=== PATIENT | male | born 1935 | race Caucasian/White ===

== ENCOUNTER → 2024-03-18 11:18 | Outpatient (REF) | payer MEDICARE, OTHER, SELFPAY ==
[2024-03-18 16:04] LABS: % Basophils 0.9 % (0-2); % Eosinophils 8.3 % (0-6); % Immature Granulocytes 0.4 % (0-0.5); % Lymphocytes 20.4 % (20.5-51.1); % Monocytes 8.4 % (1.7-9.3); % Neutrophils 61.6 % (42.2-75.2); Absolute Basophils 0.1 10^3/uL (0-0.2); Absolute Eosinophils 0.8 10^3/uL (0-0.7); Absolute Lymphocytes 1.9 10^3/uL (1.2-3.4); Absolute Monocytes 0.8 10^3/uL (0.1-0.6); Absolute Neutrophils 5.7 10^3/uL (1.4-6.5); Hematocrit 38.6 % (39.0-52.0); Hemoglobin 12.9 g/dL (13.0-18.0); Mean Corp Hgb Conc. 33.4 g/dL (33.0-37.0); Mean Corpuscular Hgb 31.9 pg (27.0-31.0); Mean Corpuscular Volume 95.3 fL (80.0-94.0); Mean Platelet Volume 10.6 fL (7.4-10.4); Nucleated Red Blood Cells % 0 % (-); Platelet Count 197 10^3/uL (130-400); Red Blood Cell Count 4.05 10^6/uL (4.70-6.10); Red Cell Dist. Width 13.1 % (11.5-14.5); White Blood Cell Count 9.3 10^3/uL (4.8-10.8)
[2024-03-18 16:13] LABS: ALT (SGPT) 19 U/L (0-50); AST (SGOT) 20 U/L (17-59); Albumin 4.1 g/dl (3.5-5.0); Alkaline Phosphatase 88 U/L (38-126); Blood Urea Nitrogen 22 mg/dl (9-20); Calcium 9.1 mg/dl (8.4-10.2); Carbon Dioxide 28 mmol/L (22-30); Chloride 107 mmol/L (98-107); Glucose 152 mg/dl (70-99); HDL Cholesterol 37 mg/dl; LDL Cholesterol, Calculated 27 mg/dl; Potassium 4.2 mmol/L (3.5-5.1); Sodium 145 mmol/L (135-145); Total Bilirubin 1.5 mg/dl (0.2-1.3); Total Cholesterol 80 mg/dl (50-199); Total Protein 6.6 g/dl (6.3-8.2); Triglyceride 83 mg/dl (10-149); Very Low Density Lipoprotein 16 mg/dl (0-30)
[2024-03-18 16:14] LABS: Urine Albumin Negative (Neg - Trace); Urine Bilirubin Negative (Negative); Urine Character Clear (Clear); Urine Color Yellow; Urine Glucose Negative (Negative); Urine Ketone Negative (Negative); Urine Leukocyte Negative (Negative); Urine Nitrite Negative (Negative); Urine Occult Blood Negative (Negative); Urine Specific Gravity 1.015 (<1.030); Urine Urobilinogen Negative (Neg - 1+)
[2024-03-18 16:50] LABS: Microalbumin, Random Urine 0.6 mg/dl (0.6-1.7); Microalbumin/creatinine Ratio 10.8 mg/g
[2024-03-19 09:30] LABS: Glycohemoglobin (HgbA1c) 6.8 % (4.0-5.6)
== END ==
LOC: HWLAB 11:18
PROVIDERS: ATTENDING PHYSICIAN Internal Medicine
DX: E11.42 Type 2 diabetes mellitus with diabetic polyneuropathy (principal); I10 Essential (primary) hypertension; E78.2 Mixed hyperlipidemia; I69.993 Ataxia following unspecified cerebrovascular disease
CPT/HCPCS: 36415; 80053; 80061; 81003; 82043; 82570; 83036; 85025

== ENCOUNTER → 2024-03-22 12:23 | Outpatient (REF) | payer MEDICARE, OTHER, SELFPAY | LOC: WOUND 12:23 | PROVIDERS: ATTENDING PHYSICIAN Surgery; FAMILY PHYSICIAN Internal Medicine | DX: L89.309 Pressure ulcer of unspecified buttock, unspecified stage (principal) | CPT/HCPCS: 99202 ==

== ENCOUNTER 2024-05-03 11:18 | Emergency (ER) | payer MEDICARE, OTHER, SELFPAY ==
[2024-05-03 11:22] VITALS: BP 123/63
--- NOTE | 2024-05-03 12:25 | ED.GENMED ---
History of Present Illness
General
Chief Complaint: Fall
Source: patient
Exam Limitations: none
Time Seen by Provider: 05/03/24 11:47
Nursing documentation reviewed up to this point in time: agreed with
History of Present Illness
History of Present Illness:
88 Y/O M from home
h/o wpw, chf, htn, hld, cva 2013, uses walker at baseline
mechanical trip and fall last evening while in his baseline forward and to the left side, landed on his Right knee and hit his left head against the door jam
no LOC
needed help up by grandson
painful limited weight bearing right knee naun
nothing taken for pain
no headache, confusion, weakness, vomting, neck pain, back tony, sob, cp, abdominla pain, hip pain
no swelling
Past History
Past History
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
Social History
Tobacco: Former smoker
Alcohol: Occasional
Personal:
Family History
Family History: Hypertension and CAD
Phy Exam
Physical Exam
Physical Exam:
GENERAL: Alert , in no apparent distress
HEAD: bruise L head
NECK: no midline tenderness, active ROM intact, no paraspinal muscle tenderness;
EYE: pupils equal and reactive, EOMs intact.
ENT: o/p clr, mmm. no hemotympanum
CARDIAC: Regular rate and rhythm, no edema
LUNGS: Clear breath sounds bilaterally, no acute respiratory distress, no wheezes/rales/rhonchi
ABDOMEN: Soft, without focal tenderness, no r/g, no cvat
NEUROLOGICAL: Alert and oriented, no focal neuro deficits, CN intact, 5/5 strength, sensation intact
SKIN: Warm and dry,
subtle brusing to left head
MUSCULOSKELETAL: righ tknee no appreaicated effusion
painful limited flexion
able to straight leg raise
nontender
no calf/ankle/foot tendneress; normal hip rom b/l
nontender hips
PSYCH: Normal and appropriate interaction.
Course
Orders/Labs/Results
Orders:
Orders
05/03/24 12:22
CT Head W/o Iv Contrast Urgent
Comment:
Reason For Exam: fall hit head
Acetaminophen [Tylenol] 1,000 mg PO NOW STA
CR Knee- Right 4 Or More View* Urgent
Comment:
Reason For Exam: fall knee pain
Vital Signs
Initial and Last Documented VS:
Initial Vital Signs
Temp Pulse Resp BP Pulse Ox
98.4 F 72 16 123/63 96
05/03/24 11:22 05/03/24 11:22 05/03/24 11:22 05/03/24 11:22 05/03/24 11:22
Last Documented Vital Signs
Temp Pulse Resp BP Pulse Ox
98.4 F 65 22 123/63 96
05/03/24 11:22 05/03/24 12:30 05/03/24 12:30 05/03/24 11:22 05/03/24 11:22
MDM/Problems Addressed
Differential Diagnosis Includes:
kneefracture, contuion, strain, sprain, head injury
MDM/Problems Addressed:
88 yo M
uses a walker and fell yesterday
onto knee and hit left head
no loc, no t hinners
able to walk minimally with pain
hasn't taken anything for pain
on exam pt has some pain with ROM of knee
normal straight leg raise
no hip tendenress
xrays indep reviweed
arthritis, small effuiosn, no fracture
head ct neg, other than chronic encephalomalacia
pt was ablle to ambulate after tylenol and ryland wrap with walker at his [facility]
d/c home
*Critical Care Note
Total Time (30-74mins, 75-104mins- exclusive of procedures): Not Applicable
ED Attending Note
-
Portions of this chart may have been created with voice recognition software.� Occasional wrong word or��sound alike� substitutions may have occurred due to the inherent limitations of voice recognition software.
Discharge Plan
Departure
Patient Disposition: Home (Routine Discharge)
Date of Disposition: 05/03/24
Time of Disposition: 15:22
Patient with high blood pressure during this ER visit?: No
Condition: Fair
Covid-19: Not Applicable
Discharge Problem:
Contusion of knee, Fall
Instructions: Head Injury in Adults (DC), Contusion (DC)
Prescriptions:
No Action
Ascorbic Acid
500 mg PO DAILY
atorvastatin 40 MG tablet
40 mg PO HS
aspirin 325 MG tablet
325 mg PO HS
spironolactone [Aldactone] 25 MG tablet
25 mg PO DAILY
gabapentin 300 MG capsule
300 mg PO TID Qty: 30 0RF
furosemide 80 MG tablet
80 mg PO DAILY Qty: 10 0RF
losartan 50 MG tablet
50 mg PO DAILY
carvedilol [Coreg] 6.25 MG tablet
6.25 mg PO BID
cyclobenzaprine 10 MG tablet
10 mg PO TID PRN (Reason: back pain)
ibuprofen 400 MG tablet
400 mg PO PRN PRN (Reason: back pain)
oxycodone-acetaminophen 5 MG/325 MG tablet
1 tab PO Q4HPRN PRN (Reason: pain) Qty: 15 0RF
prednisone 10 MG tablet
10 mg PO .TAPER Qty: 20 0RF
Rx Instructions:
Take 40mg daily x2days, 30mg daily x2days,
20mg daily x2days, 10mg daily x2days.
meclizine 25 MG tablet
25 mg PO Q8HPRN PRN (Reason: dizziness) Qty: 10 0RF
oxycodone-acetaminophen [Percocet] 5-325 mg tablet
1 tab PO Q4HPRN PRN (Reason: pain) Qty: 10 0RF
Rx Instructions:
Initial therapy
Referrals:
Salbador Mccrary, DO [Family Provider] -
Activity Restrictions/Additional Instructions:
YOU HAVE A LITTLE FLUID IN YOUR KNEE FROM THE FALL
NO FRACTURES
YOU MAY HAVE BRUISED OR SPRAINED YOUR KNEE OR INJURED A TENDON
TRY TYLENOL 2-3 TIMES A DAY FOR PAIN
ICE OFF AND ON
USE THE [place] WRAP DURING THE DAY, TAKE IT OFF ATNIGHT
FOLLOW UP WITH ORTHOPEDICS FOR CONTIJUED PAIN
RETURN FOR : SEVERE SWELLING, INABILITY TO WALKOR ANY CONCERNS
Interventions
Interventions:
*Risk Screen - Suicide Last Done: 05/03/24 11:25
*General Assessment Last Done: 05/03/24 11:25
*Neglect/Abuse Screening Last Done: 05/03/24 11:25
ED- Fall Risk Assessment Last Done: 05/03/24 13:00
*ED COVID-19 Vaccine History Last Done: 05/03/24 12:59
*Nursing Disposition Last Done: 05/03/24 16:18
ED-Musculoskeletal Assessment Last Done: 05/03/24 13:00
ED- Neurological Assessment Last Done: 05/03/24 13:00
ED-Skin Assessment Last Done: 05/03/24 13:00
Discharge Date and Time
Discharge Date/Time: 05/03/24 16:18
Print Language: TRINIDADIAN
[2024-05-03] MEDS: TYLENOL 1000 MG PO (12:52)
[2024-05-03 12:56] VITALS: BMI 31.0
== END 2024-05-03 16:18 | disposition home or self-care (01) ==
LOC: EMR 11:18
PROVIDERS: EMERGENCY PHYSICIAN Emergency Medicine; FAMILY PHYSICIAN Internal Medicine
DX: S80.01XA Contusion of right knee, initial encounter (principal); W01.198A Fall on same level from slipping, tripping and stumbling with subsequent striking against other object, initial encounter; Y92.008 Other place in unspecified non-institutional (private) residence as the place of occurrence of the external cause; I45.6 Pre-excitation syndrome; I11.0 Hypertensive heart disease with heart failure; I50.9 Heart failure, unspecified; E78.5 Hyperlipidemia, unspecified; G93.89 Other specified disorders of brain; I69.312 Visuospatial deficit and spatial neglect following cerebral infarction; I69.398 Other sequelae of cerebral infarction; I25.10 Atherosclerotic heart disease of native coronary artery without angina pectoris; Z87.891 Personal history of nicotine dependence; Z79.82 Long term (current) use of aspirin
CPT/HCPCS: 99284; 70450; 73564

== ENCOUNTER 2024-05-15 13:17 | Inpatient (IN) | payer MEDICARE, OTHER, SELFPAY ==
[2024-05-15] VITALS (14 sets, daily range): BP systolic 119–165; BP diastolic 60–111
--- NOTE | 2024-05-15 09:56 | ED.GENMED ---
History of Present Illness
General
Chief Complaint: Fall
Source: patient
Time Seen by Provider: 05/15/24 09:35
History of Present Illness
History of Present Illness:
88-year-old male brought to the emergency room by ambulance after suffering a fall at home. Patient states he lost his balance and fell onto his knees. Patient had previously fallen onto his right knee about 2 weeks ago. He was having pain since
that fall. The pain is now much worse. He has discomfort with minimal movement of the right knee. Patient denies feeling any chest pain, shortness of breath, nausea. Paramedics describe an episode in the hands which they described as a seizure.
They were not able to describe it in any detail. He did not have any incontinence. Patient does not appear postictal upon arrival. Patient denies any seizure history.
Past History
Past History
ED Past Medical History: CAD, CHF, CVA (2014 w/ left visual field loss and balance problems) and HTN
Social History
Tobacco: Former smoker
Alcohol: Occasional
Personal:
Family History
Family History: Hypertension and CAD
Phy Exam
Physical Exam
Physical Exam:
General: Awake, Alert, Oriented X3. No acute distress.
Vitals: unremarkable
Head: Atraumatic
Eyes: Pupils equal, EOMI
Throat: Airway intact, no exudates
Neck: Trachea midline
Lungs: Clear and equal b/l
Heart: Regular rate, no murmurs
Abd: Soft, Nontender, No pulsatile mass
Neuro: Cranial nerves intact, muscle strength equal bilaterally
Skin: Warm, dry, no rash
Extremities: pulses equal b/l, no edema
Course
Orders/Labs/Results
Orders:
Orders
05/15/24 09:51
CT Head W/o Iv Contrast Urgent
Comment:
Reason For Exam: possible seizure
Knee, Right 4 or More Views [CR Knee- Right 4 Or More View*] Urgent
Comment:
Reason For Exam: pain after a fall
05/15/24 09:53
Basic Metabolic Panel Urgent
Complete Blood Count/With Diff Urgent
05/15/24 10:56
Urinalysis Reflex To Culture Urgent
Date Specimen was Collected: 05/15/24
Time Specimen was Collected: 10:53
05/15/24 10:59
CR Chest - 2 Views Urgent
Comment:
Reason For Exam: hypoxia
05/15/24 11:39
CT Chest Pe Study Urgent
Comment:
Reason For Exam: hypoxia
05/15/24 12:28
Ketorolac [Toradol] 15 mg IV NOW STA
Ketorolac [Toradol] 15 mg IV Q6HPRN PRN
05/15/24 12:33
CARDIOLOGY CONSULT Routine
Consulting Provider: Rafy Miller
Was physician already notified: Yes
Reason for consult: acute bradycardia , falls
Acetaminophen [Tylenol] 650 mg PO Q6HPRN PRN
05/15/24 12:34
Splint [Braces/Immobilizers] As Directed
Type of Brace/Immobilizer: Other
Other brace/immobilizer: luh wrap
Location for Brace/Immobilizer: right knee
05/15/24 12:35
Add On- LAB Urgent
Tests Added?: troponin, mag, tsh with free t4
05/15/24 12:37
Admit/Transfer Patient As Directed
Co-Sign Provider:
Level of Care: Inpatient admission
Assign to:: Telemetry
Physician / Group: karen adames
Diagnosis: acute bradycardia concern symptomatic with fall R knee pain/strain
Reason for Telemetry: Arrhythmia
Date to Stop Telemetry: 05/18/24
Time to Stop Telemetry: 11:00
Reason for Hospitalization: acute bradycardia concern symptomatic with fall R knee pain/strain
Expected length of stay greater than two midnights?: Yes
ELOS- Estimated Length of Stay in days: 4
I certify the patient meets the requirements for IP care: Yes
Code Status As Directed
Resuscitation Status: Full Code
05/15/24 12:43
PRN Pain Medication Management As Directed
May give lesser potent ordered pain med per pt: Yes
preference::
Protocol:: Medication orders for pain may be administered in a
manner that supports deferring to patient preference
when the pt is:
- Requesting an ordered lesser potent pain medication.
Least to most potent pain medications are defined
as: acetaminophen < NSAID < tramadol < opioids
(morphine, oxycodone, hydromorphone).
- Requesting a lesser dose of the same medication IF
ORDERED.
- Requesting a less intrusive route of administration
if both routes are prescribed by the provider (PO <
IV).
05/15/24 12:45
0.9% Sodium Chloride 1000 ml [Nss] 1,000 ml IV 100 mls/hr
05/15/24 12:48
ECG [Electrocardiogram (*1)] Urgent
Reason for Study: Bradycardia / Tachycardia
Cardiology Consult: Fan Miller
05/15/24 13:00
0.9% Sodium Chloride 1000 ml [Nss] 1,000 ml IV 75 mls/hr
05/18/24 11:00
DC Protocol for Telemetry ONCE
Abnormal Lab Results
05/15/24
09:53
WBC 12.3 H 10^3/uL
(4.8-10.8)
RBC 4.67 L 10^6/uL
(4.70-6.10)
MCH 31.5 H pg
(27.0-31.0)
Abs Immat Gran (auto) 0.2 H 10^3/uL
(0-0.05)
Absolute Neuts (auto) 9.8 H 10^3/uL
(1.4-6.5)
Immature Gran % 1.7 H %
(0-0.5)
Neutrophils % 79.6 H %
(42.2-75.2)
Lymphocytes % 13.9 L %
(20.5-51.1)
BUN 37 H mg/dl
(9-20)
Creatinine 1.4 H mg/dL
(0.7-1.3)
Glucose 182 H mg/dl
(70-99)
05/15/24 09:53
05/15/24 09:53
Vital Signs
Initial and Last Documented VS:
Initial Vital Signs
Pulse Resp Pulse Ox
84 22 89
05/15/24 09:37 05/15/24 09:37 05/15/24 09:37
Last Documented Vital Signs
Temp Pulse Resp BP Pulse Ox
97.8 F 97 26 165/89 90
05/15/24 09:42 05/15/24 12:15 05/15/24 12:15 05/15/24 12:13 05/15/24 12:15
MDM/Problems Addressed
Differential Diagnosis Includes:
Right tibia fracture, right patella fracture, vasovagal syncope, symptomatic bradycardia, electrode abnormality
MDM/Problems Addressed:
Patient presents initially to be evaluated for right knee injury after a fall. During ambulance transport they describe activity which they thought was seizure-like. This lasted for a minute or so. He was not postictal on arrival. While patient
was being monitored here in the emergency room he had an episode of bradycardia down to the 20s. He did not lose consciousness however this episode does raise concern that the falls and what ever this episode was in the ambulance could be related
to syncope for bradycardia. Patient has been hypoxic here in the emergency room. He is not anemic. Chest x-ray does not show any significant infiltrate. We will obtain a CT of the chest to exclude PE however the patient will require
hospitalization for further workup and monitoring of these issues.
*Radiology
Radiology exam reviewed: radiology read reviewed
*Pulse Oximetry
Patient hypoxic: yes
*EKG
Heart Rate: 102
Rate: tachycardiac
Rhythm: sinus tachycardia
QRS Pattern: left bundle branch block
Ischemia: non-specific ST changes
*General Supervisor Interpretation
Rate: normal
Interpretation: normal
Rhythm: sinus
*Critical Care Note
Total Time (30-74mins, 75-104mins- exclusive of procedures): Not Applicable
ED Attending Note
-
Portions of this chart may have been created with voice recognition software.� Occasional wrong word or��sound alike� substitutions may have occurred due to the inherent limitations of voice recognition software.
Discharge Plan
Departure
Patient Disposition: Admit
Date of Disposition: 05/15/24
Time of Disposition: 11:39
Presentation/result/management discussed w/ accepting MD/DO: Hospitalist
Condition: Fair
Discharge Problem:
Hypoxia, Falls frequently, Contusion of knee, right, Bradycardia
Prescriptions:
No Action
atorvastatin 40 MG tablet
40 mg PO HS
aspirin 325 MG tablet
325 mg PO HS
ascorbic acid (vitamin C) [Vitamin C] 500 mg Tablet
500 mg PO DAILY
carvedilol [Coreg] 6.25 MG tablet
12.5 mg PO BID
meclizine 25 MG tablet
25 mg PO Q8HPRN PRN (Reason: dizziness) Qty: 10 0RF
metformin 500 mg Tablet
500 mg PO BID
amlodipine [Norvasc] 5 mg Tablet
5 mg PO DAILY
allopurinol 100 mg Tablet
100 mg PO DAILY
tamsulosin [Flomax] 0.4 mg Capsule
0.4 mg PO DAILY
docusate sodium [Colace] 100 mg Capsule
100 mg PO NOON
mirtazapine 15 mg Tablet
15 mg PO HS
furosemide 80 MG tablet
60 mg PO DAILY
Referrals:
Salbador Mccrary DO [Family Provider] -
Interventions
Interventions:
*Risk Screen - Suicide Last Done: 05/15/24 09:37
*General Assessment Last Done: 05/15/24 09:37
*Neglect/Abuse Screening Last Done: 05/15/24 09:37
ED- Fall Risk Assessment Last Done: 05/15/24 09:37
*ED COVID-19 Vaccine History Last Done: 05/15/24 09:46
ED-Musculoskeletal Assessment Last Done: 05/15/24 09:37
ED- Neurological Assessment Last Done: 05/15/24 09:37
ED-Skin Assessment Last Done: 05/15/24 09:37
Discharge Date and Time
Print Language: CZECH
[2024-05-15 10:04] LABS: % Basophils 0.4 % (0-2); % Eosinophils 1.6 % (0-6); % Immature Granulocytes 1.7 % (0-0.5); % Lymphocytes 13.9 % (20.5-51.1); % Monocytes 2.8 % (1.7-9.3); % Neutrophils 79.6 % (42.2-75.2); Absolute Basophils 0.1 10^3/uL (0-0.2); Absolute Eosinophils 0.2 10^3/uL (0-0.7); Absolute Immature Granulocytes 0.2 10^3/uL (0-0.05); Absolute Lymphocytes 1.7 10^3/uL (1.2-3.4); Absolute Monocytes 0.3 10^3/uL (0.1-0.6); Absolute Neutrophils 9.8 10^3/uL (1.4-6.5); Hematocrit 41.9 % (39.0-52.0); Hemoglobin 14.7 g/dL (13.0-18.0); Mean Corp Hgb Conc. 35.1 g/dL (33.0-37.0); Mean Corpuscular Hgb 31.5 pg (27.0-31.0); Mean Corpuscular Volume 89.7 fL (80.0-94.0); Mean Platelet Volume 10.1 fL (7.4-10.4); Nucleated Red Blood Cells % 0 % (-); Platelet Count 195 10^3/uL (130-400); Red Blood Cell Count 4.67 10^6/uL (4.70-6.10); Red Cell Dist. Width 13.2 % (11.5-14.5); White Blood Cell Count 12.3 10^3/uL (4.8-10.8)
[2024-05-15 10:22] LABS: Blood Urea Nitrogen 37 mg/dl (9-20); Carbon Dioxide 27 mmol/L (22-30); Chloride 104 mmol/L (98-107); Estimated Creatinine Clearance 45 ml/min; Glucose 182 mg/dl (70-99); Sodium 139 mmol/L (135-145); eGFR 48.34
--- NOTE | 2024-05-15 10:53 | EDRN ---
@ 1045 pt alarm rand for low HR. pt found to be bradycardic @ 44 bpm. this RN and second Rn ran onto bedside. pt then HR dropped to 29 bpm. pt remained awake during this and pulses intact. pt regained HR of 70-80 bpm shortly after. EKG brought to
room but pts HR no longer bradycardic. MD Vega made aware of this episode and rhythm strips printed and given to .
--- NOTE | 2024-05-15 11:01 | EDRN ---
pt remains hypoxic. was weaned to 2L NC however now back to 6L NC. MD Vega aware.
[2024-05-15 12:23] LABS: Urine Albumin Trace (Neg - Trace); Urine Bilirubin Negative (Negative); Urine Character Clear (Clear); Urine Color Yellow; Urine Glucose Negative (Negative); Urine Ketone Negative (Negative); Urine Leukocyte Negative (Negative); Urine Nitrite Negative (Negative); Urine Occult Blood Negative (Negative); Urine Specific Gravity 1.015 (<1.030); Urine Urobilinogen Negative (Neg - 1+)
[2024-05-15] MEDS: TORADOL 15 MG IV (12:40)
--- NOTE | 2024-05-15 13:09 | HPS.HSE ---
Addendum entered and electronically signed by Alex Neumann MD 05/15/24 13:46:
Received a call from the nurse that the patient's family now sounds like with an juvencio crackle we will order when examined by cardiology did not receive any fluid.
Went over the evaluated the patient, still awake, alert and family still the bedside still complaining of the pain in the right knee, on lung examination of bibasilar crackles and scattered wheezing which was not present before.
He is not in distress, still same as was before.
Therefore we will hold IV fluid is not started, I will give him a dose of IV Lasix and start DuoNeb 4 times daily and first dose now
Will DC the IV fluids as mentioned
Restart his oral Lasix tomorrow unless needed more IV Lasix.
Cardiology consulted
Will closely monitor.
All discussed with the patient and the family
Discussed with the ER nurse
Original Note:
Family Physician
-
Family Physician: Salbador Mccrary
Chief Complaint
-
Mechanical fall and pain in the right knee
History of Present Illness
88-year-old male who was in the hospital 2 weeks ago after had a mechanical fall on the right knee and and look like x-ray did not show fracture and show primary care physician and given dose of the taper steroid would help him out and he was knee
free for the last couple of days and probably had another mechanical fall earlier today while he was home,
Patient awake, alert and oriented x 3 accompanied by the , daughter and son at the bedside, there was no witnessed seizure-like activity and patient denied any dizziness or syncope prior to the fall Gleich lost balance and fell on his knee
again. Complaining of excruciating pain in the right knee with swelling mostly in the knee With the x-ray showed no fracture or dislocation,
Looks like he was kind getting jittery and frustrated according to the daughter and the family when the EMS was called and they got him out of the front door and they put him on ambulance and he was noticed to be hypoxic by EMS and satting in upper
80s and continue to be on and off oxygen saturation in 80s in room air until he put on oxygen.
Denies any chest pain or shortness of breath or fever or chills or any cough or congestion, no bleeding event changes stool or urine color, also in the ER noted she was bradycardic and in the strip showed his heart rate went down as low as 27 and
quickly converted back to sinus rhythm, with no symptoms no rest needed by the patient and the family of the ER staff.
CTA chest showed no pulmonary embolism or infiltration while EKG showed chronic left bundle branch block and QTc prolongation.
He is awake, alert and oriented x 3 hold appropriate conversations.
His condition discussed with the ER physician.
Medical History
Past Medical History
Past Medical History: Reports Other
Additional Past Medical History:
Past medical history reviewed:
Diabetes mellitus
Chronic kidney disease stage II-III
Mood disorder
Hypertension
Chronic diastolic congestive heart failure
Peripheral neuropathy
History of stroke with no residual effect
Chronic left bundle branch block
Surgical history:
Cervical spine surgery
Tonsillectomy
Cataract surgery
Social history: Lives at home with independently, no smoking and drinks 1 to 2 glasses of wine daily.
Family history: Reviewed and noncontributory
Past Surgical History: Reports Other
Social History
Unable to obtain full social history at this time due to: Other
Family History
Family History: Other
Allergies / Home Medications
Allergies reflects when Allergies were last updated in [email or web address].
Home Medications with original date entered in [email or web address]
Allergy/Medication List:
Allergies
Allergy/AdvReac Type Severity Reaction Status Date / Time
No Known Allergies Allergy Verified 05/03/24 11:21
Home Medications
ascorbic acid (vitamin C) 500 mg tablet (Vitamin C) 500 mg PO DAILY 09/07/14
aspirin 325 mg tablet 325 mg PO HS 09/07/14
atorvastatin 40 mg tablet 40 mg PO HS 09/07/14
carvedilol 6.25 mg tablet (Coreg) 12.5 mg PO BID 01/20/16
meclizine 25 mg tablet 25 mg PO Q8HPRN PRN dizziness #10 tabs 07/18/18
allopurinol 100 mg tablet 100 mg PO DAILY 05/15/24
amlodipine 5 mg tablet (Norvasc) 5 mg PO DAILY 05/15/24
docusate sodium 100 mg capsule (Colace) 100 mg PO NOON 05/15/24
furosemide 80 mg tablet 60 mg PO DAILY 05/15/24
metformin 500 mg tablet 500 mg PO BID 05/15/24
mirtazapine 15 mg tablet 15 mg PO HS 05/15/24
tamsulosin 0.4 mg capsule (Flomax) 0.4 mg PO DAILY 05/15/24
Review of Systems
-
A 12 point ROS was completed and negative except as noted: Yes
Physical Exam
Vital Signs
Vital Signs
Temp Pulse Resp BP Pulse Ox
97.8 F 97 26 165/89 90
05/15/24 09:42 05/15/24 12:15 05/15/24 12:15 05/15/24 12:13 05/15/24 12:15
Physical exam:
General: Awake, alert and oriented x3, not in distress and holds appropriate conversation.
HEENT: No active discharge, ecchymosis or bruising, moist lips, tongue and mucous membrane.
Eyes: No discharge or red conjunctiva, no nystagmus, pupils are reactive and equal
Neck:Supple, no JVD no bruit no goiter.
Respiratory: Normal AP contour and diameter, normal chest wall movement, normal respiratory effort, no respiratory distress,
Lungs: Good air entry bilaterally, no wheezing or rhonchi, no rales or crackles
Heart: S1, S2 regular, normal rate, no added sound.
Gastrointestinal: Positive bowel sounds, soft, nontender, no guarding or rigidity or organomegaly
Musculoskeletal: Abrasion over the right knee mostly medially, with mild swelling of the right knee and limitation of movement. While all the other joints and extremities have normal range of motion and no evidence of swelling,, no chest wall
abnormality or tenderness.
Extremities: No pitting edema, good peripheral pulses, good range of motion
Skin: Warm and dry, no ulceration, normal color.
Neurological: Awake, alert and oriented x3, speech clear and comprehensive, good muscle tone,
Psychiatric: Normal mood, normal thought and judgment, normal affect,
Physical Exam
General: Other
Laboratory Results
-
05/15/24 09:53
05/15/24 09:53
CTA chest:No CTA evidence for an acute pulmonary thromboembolism within the limitations of respiratory motion artifact and streak artifact. Limited evaluation of the bilateral segmental and subsegmental pulmonary arteries.
Right knee x-ray:No acute fracture or dislocation.
CT brain:There are no acute intracranial abnormalities.
There is old 6 cm right posterior cerebral artery infarct
There is moderate diffuse cortical atrophy with moderate nonspecific white matter changes as described above.
EKG: Showed sinus tachycardia with 2: 156, QTc 516, left of the branch block, left axis deviation, nonspecific T wave abnormality
Data Reviewed
-
Diagnostic Radiology: Image Personally Visualized and interpreted, Report Reviewed by me, Discussed with Physician, Discussed with Patient and Discussed with Family
CT Scan: Image Personally Visualized and interpreted, Report Reviewed by me, Discussed with Physician, Discussed with Patient and Discussed with Family
Medical Tests (Nuc Med, Echo, EKG etc): Image Personally Visualized and interpreted, Discussed with Patient and Discussed with Family
Lab Data: Labs Reviewed by me, Discussed with Patient and Discussed with Family
Old Records: Reviewed
Impression/Plan
-
IMPRESSION:
88-year-old male presented to the hospital with right mechanical fall at home on his right knee down, no any dizziness is uncertain of syncope or loss of questions of seizure prior to the fall.
Mechanical fall.
PT OT and assess functional status
Fall precaution
Right knee pain:
Likely secondary to right knee pain and swelling, x-ray showed no fracture or dislocation
If not improving or there is more swelling then we will consider knee CAT scan get an Ortho consult.
Pain medication with Ultram and Tylenol avoid NSAID because of chronic kidney disease.
PT OT
Place Rodrigo bandage on.
Ambulatory dysfunction, secondary to right knee pain
PT OT and assess functional status
Acute hypoxic failure:
Unclear causes, CT was negative for PE on infiltration, no respiratory symptoms,, he had an episode of bradycardia in the ER, currently in a normal rhythm but he is still requiring oxygen,
Possibly related to holding his breath because of the pain
Continue oxygen and try to wean off
Cardiac monitoring
Get cardiology consult
Check magnesium level and potassium was was not resulted because of hemolyzed
TSH
Sinus bradycardia
No clear causes
Carvedilol was assured.
alarm security or surveillance monitor
Check TSH, potassium and magnesium level
Cardiology consult
Continue carvedilol for now since was a short left episode
Chronic QTc interval prolongation:
Known history: As above check lites and TSH
Cardiology consult.
Left bundle branch block: Chronic
Get a troponin
Cardiology consult
Diabetes mellitus: Glucoscan
He is on metformin and his creatinine ranging from 1.4-1.6 should not be back on metformin
I will hold anyway because getting IV contrast
monitor blood sugar closely
Hypertension:
Continue carvedilol and amlodipine will monitor pressure closely
Chronic congestive heart failure with preserved ejection fraction:
Stable
Looks on the dry side
Give him a bag of normal saline specially he received IV contrast
All discussed with the patient and the family and they expressed understanding
CODE STATUS full code
DVT prophylaxis
--- NOTE | 2024-05-15 13:24 | CON.CAR ---
Addendum entered and electronically signed by Rafy Miller MD 05/15/24 15:32:
I saw and examined the patient.
The Fire Chief's note was reviewed and I agree with the note.
Comment:
GEN: No distress, awake, Ox3
HEENT: supple, anicteric, mmm
LUNGS: scatt rhonchi
CV: Reg, S1/S2, 1/6 syst LSB, no gallop
ABD: soft, BS+, NT/ND
EXT: No edema
NEURO: Gross non-focal
SKIN: No rash
Plan:
He presents after multiple falls was found to have a few brief episodes of sinus bradycardia today. Is unclear whether his falls are related to his bradycardia. He currently is in sinus rhythm in the 90s. Will decrease Coreg to 6.25 mg p.o. twice
daily and follow him on telemetry. We discussed pacemaker placement I see no clear indication for pacemaker right now. Will follow him for the next 12 to 24 hours and reassess. Another option if he does not meet criteria for permanent pacing with
the to place a Linq monitor.
Await COVID test. proBNP is mildly elevated agree with Lasix x 1 and then reassess.
Will check a repeat echocardiogram. Blood pressure is overall stable. Continue on lower dose of Coreg and amlodipine
White blood cell count is elevated.
Original Note:
Consultation
Consultation Request
Date/Time Consultation Requested: 05/15/24
Date/Time Consultation Performed: 05/15/24
Requesting Provider: Dr. Neumann
Performing Provider: Dr. Miller
Reason for Consultation: Weakness, fall, sinus bradycardia
Medical History
-
History of Present Illness:
Patient came to [facility] today after a fall at home and had an episode of sinus bradycardia with consultation to cardiology. Patient was in [facility] 05/03/24 with a fall that patient and describe as leg weakness resulting in fall and then right knee
pain. Patient had a negative CT head and as discharged to home. He followed up with his PCP 05/09/24 and was started on prednisone for ongoing right knee pain. BP 120/60 and HR 68 at that office visit. Patient says that he awoke early this morning to
urinate, but his bedside urinal was full. His tried to help him stand and he was ambulating with a walker when he fell obtaining a sweater out of the closet. Right knee pain is now much worse. Patient was not SOB at home. No LOC. Paramedics
reported tremulous hands, but no seizure and again no change in level of consciousness. Patient has become increasingly hypoxic in the ER and is now wearing 4 L and sat'ing at 89%. He appears dyspneic and frail, but denies SOB. Tele reviewed and he
had an episode of sinus bradycardia, but was asymptomatic. His reports dizziness every 6 weeks or so that responds to Meclizine at home.
PMH:
CKD 3b
Chronic HF improved EF
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
cLBBB
Hyperlipidemia
Chronic benign pericardial cyst
h/o right hemispheric CVA 2013
Past Medical History
Past Medical History: Other (in HPI)
Past Surgical History: Orthopedic (cervical neck surgery) and Tonsilectomy
Social History
Tobacco: Former Smoker (smoked in high school)
Alcohol: None
Drug: None
Personal:
Living: With Family
Family History
Family History: CAD and Cancer
Allergies / Home Medications
Allergy/AdvReac Type Severity Reaction Status Date / Time
No Known Allergies Allergy Verified 05/03/24 11:21
�Medication �Instructions �Recorded �Confirmed �Type
ascorbic acid (vitamin C) 500 mg 500 mg PO DAILY 09/07/14 05/15/24 History
tablet (Vitamin C)
aspirin 325 mg tablet 325 mg PO HS 09/07/14 05/15/24 History
atorvastatin 40 mg tablet 40 mg PO HS 09/07/14 05/15/24 History
carvedilol 6.25 mg tablet (Coreg) 12.5 mg PO BID 01/20/16 05/15/24 History
meclizine 25 mg tablet 25 mg PO Q8HPRN PRN dizziness #10 07/18/18 05/15/24 Rx
tabs
allopurinol 100 mg tablet 100 mg PO DAILY 05/15/24 05/15/24 History
amlodipine 5 mg tablet (Norvasc) 5 mg PO DAILY 05/15/24 05/15/24 History
docusate sodium 100 mg capsule 100 mg PO NOON 05/15/24 05/15/24 History
(Colace)
furosemide 80 mg tablet 60 mg PO DAILY 05/15/24 05/15/24 History
metformin 500 mg tablet 500 mg PO BID 05/15/24 05/15/24 History
mirtazapine 15 mg tablet 15 mg PO HS 05/15/24 05/15/24 History
tamsulosin 0.4 mg capsule (Flomax) 0.4 mg PO DAILY 05/15/24 05/15/24 History
Review of Systems
-
History Source: Patient and Family (, daughter and son sitting bedside to help with HPI)
All other systems: Negative unless noted
Physical Exam
Vital Signs
Temp Pulse Resp BP Pulse Ox
97.8 F 103 42 152/90 89
05/15/24 09:42 05/15/24 13:05 05/15/24 13:05 05/15/24 13:00 05/15/24 12:55
GEN: AAOx3
HEENT: EOMI, MMM
LUNGS: Rhonchi throughout, no wheeze, no rales
CV: Reg, S1/S2, no murmur
ABD: soft, BS+, NT, ND
EXT: No clubbing, cyanosis, lesions or edema B/L
NEURO: Gross non-focal
SKIN: Warm, dry and pink. No rash
Lab Results
05/15/24 09:53
COVID pending
Sodium 139, potassium hemolyzed and repeat pending, BUN 37, Cre 1.4, magnesium pending, AST 20, ALT 19, TSH pending
Impression / Plan
-
PCP: Dr. Mccrary
Cardiology: Dr. Miller, last seen 04/19/23
Impression:
Weakness and fall
Recent ER visit for fall and right knee pain 05/03/24
Acute hypoxic respiratory failure
Sinus bradycardia
Sinus tachycardia
Right knee pain
CKD 3b
Chronic HF improved EF
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
cLBBB
Hyperlipidemia
Chronic benign pericardial cyst
h/o right hemispheric CVA 2013
Echo 02/2014: [facility] study, EF 25%
Echo 08/15/22: EF 55 to 60%, no MR, mild TR with PAP 20 to 25 mmHg
Plan:
-Patient came to [facility] today after a fall at home and had an episode of sinus bradycardia with consultation to cardiology. Patient was in [facility] 05/03/24 with a fall that patient and describe as leg weakness resulting in fall and then right knee
pain. Patient had a negative CT head and as discharged to home. He followed up with his PCP 05/09/24 and was started on prednisone for ongoing right knee pain. BP 120/60 and HR 68 at that office visit. Patient says that he awoke early this morning to
urinate, but his bedside urinal was full. His tried to help him stand and he was ambulating with a walker when he fell obtaining a sweater out of the closet. Right knee pain is now much worse. Patient was not SOB at home. No LOC. Paramedics
reported tremulous hands, but no seizure and again no change in level of consciousness. Patient has become increasingly hypoxic in the ER and is now wearing 4 L and sat'ing at 89%. He appears dyspneic and frail, but denies SOB. Tele reviewed and he
had an episode of sinus bradycardia, but was asymptomatic. His reports dizziness every 6 weeks or so that responds to Meclizine at home.
-ECG ordered by me. ECG reviewed by me in room with patient shows chronic LBBB and sinus tachycardia.
-Tele reviewed and sinus bradycardia without higher grade heart block nor pause. No indication for PPM based on tele thus far.
-Mostly sinus tachycardia on tele. Patient also with h/o improved EF. Instead of stopping Coreg will reduce to 6.25 mg BID. Follow on tele.
-During my exam patient is hypoxic with rhonchi, family says this is new. No fevers or chills at home. COVID swab taken. Cont supplemental oxygen, patient was not using supplemental oxygen prior to admission.
-Check echo to re-eval EF. EF previously as low as 25% in 2013 and up to 55-60% in 2021.
-Reduce Coreg as noted.
-Outpatient dose of losartan 50 mg daily should be continued.
-Add on pro-BNP ordered by me.
-Patient was taking Lasix 60 mg PO daily prior to admission. Pending COVID and pro-BNP he might need diuresis. Patient with known CKD 3b
[2024-05-15] MEDS: LASIX 40 MG IV (13:50)
[2024-05-15] MEDS: DUONEB 3 ML INH ×3 (13:50→20:39)
[2024-05-15] MEDS: ULTRAM 50 MG PO (13:50)
[2024-05-15 13:59] LABS: Magnesium 1.7 mg/dl (1.6-2.3); Potassium 3.7 mmol/L (3.5-5.1)
[2024-05-15 14:29] LABS: Troponin I 0.053 ng/ml
[2024-05-15 14:55] LABS: COVID-19 Antigen Negative (Negative)
[2024-05-15 14:58] LABS: NT-proBNP 958 pg/ml
--- NOTE | 2024-05-15 16:17 | W.PN.UPDATE ---
Update Note
Progress Note Update
Patient moved to IMU, checked on him in room. Patient is being bladder scanned because he denies increased urine output, but nursing reports he was saturated on arrival to IMU. Bladder scan acceptable and he doesn't appear to be retaining. Pulse ox
improved and remains on oxygen at 3 L NC. He is less dyspneic with conversation. Neb given in ER prior to coming up to IMU. Will change Lasix order to 40 mg IV daily starting tomorrow. Updated patient's and daughter. Explained that patient has
CKD 3b and baseline Cre is 1.5. Cre 1.4 in the ER. Troponin resulted and is 0.053. ECG with chronic LBBB. Additional Troponin pending, will order for AM also. 31 min in face to face with patient and updating family and chart prep/orders.
--- NOTE | 2024-05-15 17:00 | PTCARENOTE ---
Admitted to 3342, admission completed bedside with pt and . IMu monitors in place, SR/ BBB 80-90s [id number]. 6L NC 93%, occasional cough lungs clear. Abd. distended and slightly tender to palpation- bladder scanned 230. Incontinent of urine
on arrival to floor- cleansed and condom cath placed #25. voiding yellow audrey urine. Skin assessment done / documented. Turning schedule.
[2024-05-15 17:39] LABS: Glucose - Point of Care 205 mg/dl (70-99)
[2024-05-15 18:20] LABS: Glucose - Point of Care 232 mg/dl (70-99)
--- NOTE | 2024-05-15 18:50 | RR ---
A Rapid Response was called on this patient, please see Rapid Response form.
Family came out reported to me that Dad is having a hard time expressing what he wants, huge change for him. Symptoms started within 1/2 hour. Normally very sharp. Rapid called. Labs, CT scan EKG ordered. Spoke with Dr. Torres and Dr. Patterson.
[2024-05-15 18:51] LABS: Hematocrit 43.5 % (39.0-52.0); Hemoglobin 15.5 g/dL (13.0-18.0); Mean Corp Hgb Conc. 35.6 g/dL (33.0-37.0); Mean Corpuscular Hgb 31.8 pg (27.0-31.0); Mean Corpuscular Volume 89.1 fL (80.0-94.0); Mean Platelet Volume 10.4 fL (7.4-10.4); Platelet Count 172 10^3/uL (130-400); Red Blood Cell Count 4.88 10^6/uL (4.70-6.10); Red Cell Dist. Width 13.4 % (11.5-14.5); White Blood Cell Count 36.1 10^3/uL (4.8-10.8)
[2024-05-15 18:59] LABS: APTT 24.9 Sec (23.4-35.0); INR 1.02; PT 13.4 Sec (11.4-14.6)
[2024-05-15 19:02] LABS: ALT (SGPT) 24 U/L (0-50); AST (SGOT) 26 U/L (17-59); Albumin 3.8 g/dl (3.5-5.0); Alkaline Phosphatase 106 U/L (38-126); Blood Urea Nitrogen 41 mg/dl (9-20); Calcium 8.8 mg/dl (8.4-10.2); Carbon Dioxide 23 mmol/L (22-30); Chloride 102 mmol/L (98-107); Estimated Creatinine Clearance 37 ml/min; Glucose 243 mg/dl (70-99); Potassium 4.1 mmol/L (3.5-5.1); Sodium 141 mmol/L (135-145); Total Bilirubin 2.9 mg/dl (0.2-1.3); Total Protein 6.2 g/dl (6.3-8.2)
--- NOTE | 2024-05-15 19:06 | W.PN.UPDATE ---
Update Note
Progress Note Update
Stroke alert
Patient got admitted this morning after a fall and right knee pain. There is also abnormal troponins and cardiology workup in progress.
Family noted around 6:23 PM that he was having some difficulty in getting the right words so they called the nurse who called a stroke alert.
Patient went down for the CAT scan and came up just now.
Patient is alert and oriented to place. He denies any headache. Denying any speech impairment. Denies any motor weakness. His only complaint is right knee pain.
Sinus rhythm with a broad QRS complex on the monitor.
No facial asymmetry. Pupils were equal and react to light and extraocular movements intact.
No pronator drift. Power upper extremity both proximally distally 5/5 and as well as lower extremity both proximally and distally. He was able to move the right leg but little difficulty because of right knee pain. Plantars are equivocal.
Heart sounds S1 plus S2 are regular
Bilateral rhonchi heard. No respiratory distress evident.
Stat CT head showed no acute intracranial abnormality. Old right occipital infarct with encephalomalacia noted.
CTA of the head and neck stat showed no significant vascular occlusion, aneurysm or dissection. Right upper lobe groundglass density noted.
Unclear etiology for transient word finding difficulty but no other focal neurological symptoms. Speech is normal now. NIH scale 0.
There is also some history of clotting in the chart about increased motor activity evident at home with the fall.
In view of stroke in the past rule out any intermittent seizures.
Discussed with neurology-starting on Keppra for now. Will obtain EEG and an MRI of the brain.
Discussed the plan with the family and as well as RN.
[2024-05-15 19:16] LABS: Troponin I 0.103 ng/ml
[2024-05-15] MEDS: NOVOLOG FLEXPEN-LOW RESISTANCE SC (19:35)
[2024-05-15] MEDS: LIPITOR 40 MG PO (20:34)
[2024-05-15] MEDS: COREG 6.25 MG PO (20:34)
[2024-05-15] MEDS: LOVENOX 40 MG SC (20:34)
[2024-05-15] MEDS: REMERON 15 MG PO (20:35)
[2024-05-15] MEDS: ASPIRIN 325 MG PO (20:35)
[2024-05-15] MEDS: TYLENOL 650 MG PO (20:36)
[2024-05-15] MEDS: KEPPRA 1000 MG IV (20:37)
[2024-05-15 23:06] LABS: Glucose - Point of Care 241 mg/dl (70-99)
[2024-05-15 23:41] LABS: Troponin I 0.124 ng/ml
[2024-05-16] VITALS (18 sets, daily range): BP systolic 34–151; BP diastolic 55–97; PULSE 75–76; O2SAT 90–93; BMI 29.9
--- NOTE | 2024-05-16 00:59 | PTCARENOTE ---
Received patient from [facility]. Physician was preformed NIH at the bedside and mentioned getting a CXR but did not order one. Patient began to become restless and was having distress while breathing on 5L NC with sat of 89%. Placed patient on
midflow at 7L and sat came up to 92. WBC are 36.[address] showed right upper ground glass opacity. Notified WEAVER WIRE LOOM with labs and findings and asked about an order for a CXR but no order was given. WEAVER WIRE LOOM ordered procal which came back at 35.4.
WEAVER W[employer] LOOM notified again and antibiotics were ordered. Continuing to monitor the patient.
[2024-05-16] MEDS: ZOSYN 50 IV ×2 (01:37→08:42)
--- NOTE | 2024-05-16 02:01 | W.PN.UPDATE ---
Update Note
Progress Note Update
RN reports patient Oxygen level at 90's on 6L and is restless due to his breathing, Also WBC now is 36.1. Ordered Pro-cindy, noted to be 35.4, likely due to Respiratory sepsis, CT head/neck New right upper lobe groundglass densities may reflect
developing pneumonia. Will order IV Vancomycin and IV Zosyn. Stable Vital signs at present
[2024-05-16] MEDS: VANCOCIN 300 MG IV (02:47)
[2024-05-16] MEDS: VANCOCIN 300 ML IV (02:47)
--- NOTE | 2024-05-16 04:52 | PTCARENOTE ---
During changing the patients linens, the patient had a 26 beat run of Vtach. The patient dazed out for a few seconds but came back when asked if he was okay. The patient stated he was okay and returned to normal sinus rhythm. [employer] notified and a
magnesium lab add on was ordered.
[2024-05-16 05:02] LABS: % Basophils 0.4 % (0-2); % Eosinophils 5.9 % (0-6); % Immature Granulocytes 0.9 % (0-0.5); % Lymphocytes 8.6 % (20.5-51.1); % Monocytes 3.8 % (1.7-9.3); % Neutrophils 80.4 % (42.2-75.2); Absolute Basophils 0.1 10^3/uL (0-0.2); Absolute Eosinophils 1.3 10^3/uL (0-0.7); Absolute Immature Granulocytes 0.2 10^3/uL (0-0.05); Absolute Lymphocytes 1.9 10^3/uL (1.2-3.4); Absolute Monocytes 0.9 10^3/uL (0.1-0.6); Absolute Neutrophils 17.9 10^3/uL (1.4-6.5); Hematocrit 37.1 % (39.0-52.0); Hemoglobin 13.3 g/dL (13.0-18.0); Mean Corp Hgb Conc. 35.8 g/dL (33.0-37.0); Mean Corpuscular Hgb 31.7 pg (27.0-31.0); Mean Corpuscular Volume 88.5 fL (80.0-94.0); Nucleated Red Blood Cells % 0 % (-); Platelet Count 110 10^3/uL (130-400); Red Blood Cell Count 4.19 10^6/uL (4.70-6.10); Red Cell Dist. Width 13.4 % (11.5-14.5); White Blood Cell Count 22.3 10^3/uL (4.8-10.8)
[2024-05-16 05:27] LABS: ALT (SGPT) 19 U/L (0-50); AST (SGOT) 21 U/L (17-59); Albumin 3.3 g/dl (3.5-5.0); Alkaline Phosphatase 95 U/L (38-126); Blood Urea Nitrogen 50 mg/dl (9-20); Calcium 8.4 mg/dl (8.4-10.2); Carbon Dioxide 23 mmol/L (22-30); Chloride 104 mmol/L (98-107); Estimated Creatinine Clearance 31 ml/min; Glucose 189 mg/dl (70-99); HDL Cholesterol 36 mg/dl; LDL Cholesterol, Calculated 15 mg/dl; Magnesium 1.9 mg/dl (1.6-2.3); Potassium 3.7 mmol/L (3.5-5.1); Sodium 136 mmol/L (135-145); Total Bilirubin 2.4 mg/dl (0.2-1.3); Total Cholesterol 86 mg/dl (50-199); Total Protein 5.8 g/dl (6.3-8.2); Triglyceride 176 mg/dl (10-149); Very Low Density Lipoprotein 35 mg/dl (0-30); eGFR 31.51
[2024-05-16 06:02] LABS: Troponin I 0.112 ng/ml
[2024-05-16 07:32] LABS: Glucose - Point of Care 197 mg/dl (70-99)
[2024-05-16] MEDS: DUONEB 3 ML INH ×3 (07:47→21:16)
--- NOTE | 2024-05-16 07:50 | PHA.VAN.IN ---
Assessment
- Assessment
Renal Function: Unknown baseline (SCR increasing from admission 1.4 --> 1.7 --> 2)
Concomitant Antimicrobials: piperacillin/tazobactam
Plan
- Plan
Initial / Loading Dose: 1500mg - 05/16 02:47
Maintenance Regimen: dosing by level - give additional 500mg x1 to complete load
Monitoring: random 05/17 0600
MRSA Screen: Ordered per protocol
Pharmacokinetics Vancomycin I
- -
Patient Age: 88
Patient Sex: Male
Vancomycin Day #: 1
Indication: Pulmonary/Respiratory
Requesting Provider: Valerio Long
Pertinent Antimicrobial Allergies:
NKDA
Height / Weight:
Height 6 ft 4 in
Actual Weight 111.3 kg
Pertinent Past Medical History: DM
- Vital Signs / Lab Results
Temp Pulse Resp BP Pulse Ox
97.6 F 68 19 120/55 95
05/16/24 04:23 05/16/24 06:00 05/16/24 06:00 05/16/24 06:00 05/16/24 06:00
Lab Results - Hematology
05/15/24 05/15/24 05/16/24
09:53 18:25 04:34
WBC 12.3 H 36.1 H 22.3 H
Lab Results - Chemistry
05/15/24 05/15/24 05/16/24
09:53 18:24 04:34
BUN 37 H 41 H 50 H
Creatinine 1.4 H 1.7 H 2.0 H
Estimated Creat Clear 45 37 31
Albumin 3.8 3.3 L
Lab Results - Urine
05/15/24
10:56
Urine Nitrite (Reflex) Negative
Leukocyte Esterase Rfl Negative
--- NOTE | 2024-05-16 08:23 | W.PN.CARDCBS ---
Addendum entered and electronically signed by Rafy Miller MD 05/16/24 12:07:
I saw and examined the patient.
The Line Controller's note was reviewed and I agree with the note.
Comment:
GEN: No distress, awake,
HEENT: supple, anicteric, mmm
LUNGS: CTA, no wheezes/rales
CV: Reg, S1/S2, 1/6 syst LSB, no gallop
ABD: soft, BS+, NT/ND
EXT: No edema
NEURO: Gross non-focal
SKIN: No rash
Plan:
Still struggling with back pain and orthopedic issues. Had an episode of wide-complex tachycardia which I am guessing is supraventricular with his known left bundle branch block.
Will increase Coreg back to 12.5 p.o. twice daily. No clear indication for pacemaker for now. Will proceed with Linq monitor in AM.
Check echocardiogram.
Hold Lasix for today. Likely resume p.o. Lasix in a.m.
Original Note:
Today's Communication / Plan
-
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
Lasix IV stopped, follow Cre
Echo pending
No indication for PPM
51 minutes in face to face time, chart prep, updated patient's at bedside
Impression / Plan
-
PCP: Dr. Mccrary
Cardiology: Dr. Miller, last seen 04/19/23
Impression:
Weakness and fall
Recent ER visit for fall and right knee pain 05/03/24
Acute hypoxic respiratory failure
Sinus bradycardia
Sinus tachycardia
Right knee pain
DAVE on CKD 3b
Chronic HF improved EF
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
cLBBB
Hyperlipidemia
Chronic benign pericardial cyst
h/o right hemispheric CVA 2013
stroke alert 05/15/[address] head
Possible atrial tachycardia with aberrancy overnight 05/15/24
Elevated Troponin
Echo 02/2014: [facility] study, EF 25%
Echo 08/15/22: EF 55 to 60%, no MR, mild TR with PAP 20 to 25 mmHg
Echo 05/16/24: Study pending
Plan:
-Overnight events noted, patient with word finding difficulty and then had CT head that was negative. reports he is more alert 05/16/24 AM, but not back to baseline.
-WBC count elevated and procal 35.4 on 05/15/24 PM. Afebrile. Hospitalist started cefepime and vancomycin. COVID negative 05/15/24.
-From a CV standpoint, tele reviewed and patient with a 26 beat run of what looks like atrial tachycardia with aberrancy 05/16/24 early AM. Nursing reported that patient appeared symptomatic with 'dazed' look. Outpatient dose of Coreg decreased to
6.25 mg BID on admission due to an episode of sinus bradycardia with HR 38 in the ER, but no higher grade HB and no pauses. No recurrence of bradycardia overnight.
-Consideration for Linq implant 05/17/24 pending clinical course
-Troponin checked 05/15/24 afternoon and elevated at 0.053 and then peaked at 0.124. ECG with chronic LBBB. No chest pain. Echo pending. Suspect this is a nonischemic myocardial injury Troponin elevation due to underlying illness.
-pro-BNP was 958 on admission which is higher than previous. Patient was given Lasix 40 mg IV x1 05/15/24 evening and weight stable, but only recorded weights are a stretcher scale and a built in bed scale. I&Os not accurate due to incontinence.
Patient was given another dose of Lasix 40 mg IV 05/16/24 AM, will hold additional doses in the setting of DAVE.
-EF previously as low as 25% in 2013, but has improved and been 55% for years. Last echo in 2021, repeat echo ordered for 05/16/24.
-Outpatient dose of Coreg decreased on admission due to bradycardia, but might increase back up to due possible arrhythmia
-Outpatient med list during ER visit 05/03/24 listed spironolactone and losartan. Cardiology office visit list also listed losartan as of 12/2022. Reviewed PCP med list in [facility] for the last 2 visits and there is no dose of losartan 50 mg daily.
Regardless, RYLAND/ARB should be held in the setting of DAVE. Will re-evaluated need for meds pending echo.
HPI: -Patient came to [facility] today after a fall at home and had an episode of sinus bradycardia with consultation to cardiology. Patient was in [facility] 05/03/24 with a fall that patient and describe as leg weakness resulting in fall and then right
knee pain. Patient had a negative CT head and as discharged to home. He followed up with his PCP 05/09/24 and was started on prednisone for ongoing right knee pain. BP 120/60 and HR 68 at that office visit. Patient says that he awoke early this
morning to urinate, but his bedside urinal was full. His tried to help him stand and he was ambulating with a walker when he fell obtaining a sweater out of the closet. Right knee pain is now much worse. Patient was not SOB at home. No LOC.
Paramedics reported tremulous hands, but no seizure and again no change in level of consciousness. Patient has become increasingly hypoxic in the ER and is now wearing 4 L and sat'ing at 89%. He appears dyspneic and frail, but denies SOB. Tele
reviewed and he had an episode of sinus bradycardia, but was asymptomatic. His reports dizziness every 6 weeks or so that responds to Meclizine at home.
Progress Note - Federal Mediator
Subjective
Date of Service: May 16, 2024
reports he is more alert this morning
Objective
Labs:
05/16/24 04:34
05/16/24 04:34
Labs
Hgb 13.3 g/dL (13.0-18.0) 05/16/24 04:34
Hct 37.1 % (39.0-52.0) L 05/16/24 04:34
Plt Count 110 10^3/uL (130-400) L D 05/16/24 04:34
PT 13.4 Sec (11.4-14.6) 05/15/24 18:25
INR 1.02 05/15/24 18:25
APTT 24.9 Sec (23.4-35.0) 05/15/24 18:25
Sodium 136 mmol/L (135-145) 05/16/24 04:34
Potassium 3.7 mmol/L (3.5-5.1) 05/16/24 04:34
BUN 50 mg/dl (9-20) H 05/16/24 04:34
Creatinine 2.0 mg/dL (0.7-1.3) H 05/16/24 04:34
Glucose 189 mg/dl (70-99) H 05/16/24 04:34
Troponins
05/15/24 05/15/24 05/15/24
13:25 13:58 16:06
Troponin I Cancelled 0.053 H* Cancelled
05/15/24 05/15/24 05/15/24
18:24 22:06 23:04
Troponin I 0.103 H* D Cancelled 0.124 H*
05/16/24 05/16/24 05/16/24
02:00 04:34 06:00
Troponin I Cancelled 0.112 H* Cancelled
Vital Signs and I&O:
Vital Signs
Temp Pulse Resp BP Pulse Ox
97.6 F 80 26 120/55 95
05/16/24 04:23 05/16/24 07:48 05/16/24 07:48 05/16/24 06:00 05/16/24 07:48
Vital Signs
Temp Pulse Resp BP Pulse Ox
97.6 F 80 26 120/55 95
05/16/24 04:23 05/16/24 07:48 05/16/24 07:48 05/16/24 06:00 05/16/24 07:48
Intake & Output
05/14/24 05/15/24 05/16/24 05/17/24
06:59 06:59 06:59 06:59
Intake Total 350 / 350
Output Total 300 / 300
Balance 50 / 50
Physical Exam
Physical Exam
GEN: AAOx3
HEENT: MMM
LUNGS: Rhonchi anterolaterally without wheeze
CV: SR on tele
ABD: ND
EXT: No edema B/L
NEURO: Gross non-focal
SKIN: No rash
[2024-05-16 08:34] LABS: Glycohemoglobin (HgbA1c) 7.1 % (4.0-5.6)
[2024-05-16] MEDS: NOVOLOG FLEXPEN-LOW RESISTANCE 1 UNITS SC ×3 (08:42→17:23)
[2024-05-16] MEDS: VITAMIN C 500 MG PO (08:43)
[2024-05-16] MEDS: COREG 6.25 MG PO ×2 (08:43→19:58)
[2024-05-16] MEDS: ZYLOPRIM 100 MG PO (08:44)
[2024-05-16] MEDS: FLOMAX 0.4 MG PO (08:44)
[2024-05-16] MEDS: NORVASC 5 MG PO (08:44)
[2024-05-16] MEDS: KEPPRA 1000 MG IV ×2 (08:45→19:59)
[2024-05-16] MEDS: LASIX 40 MG IV (08:45)
[2024-05-16] MEDS: ULTRAM 50 MG PO ×2 (09:51→19:57)
--- NOTE | 2024-05-16 10:57 | CON.NEURO4 ---
Consultation - Neurology 4
-
CONSULTING PHYSICIAN: Tyler Torres MD(Neurology)
REFERRING PHYSICIAN: Hospitalist
DICTATED BY: Tyler Torres MD
DATE/TIME OF REQUEST: May 15, 2024
DATE/TIME OF CONSULTATION: May [id number]
Reason for Consultation: Altered mental status
History of Present Illness:
This is a 88 year old right handed male who has presented to the hospital with (chief complaint) of altered mental status. He gives a history of diabetes mellitus, Chronic kidney disease stage II-III, Mood disorder
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
recurrent falls who had been in his usual state of health. Prior to admission he lost his balance and fell and hurt his right knee
Following admission he had an episode of aphasia and stroke alert was initiated. There was no new facial or arm weakness. Speech returned to baseline. Emergent CT of the head did not show any acute lesions, and a chronic right temporal occipital
infarct. He was given Keppra 1000 mg IV. Postinfusion patient had no further episodes.
Past Medical History: As above
Surgical History: Anterior cervical discectomy and fusion
Family History: Noncontributory
Social History: Lives at home with his . Occasional glass of wine. Does not smoke
Allergies: None
Home Medications: Addendum
Review of Symptoms:
Patient denies any fever, headache, chest pain, shortness of breath, GI or symptoms.
�Per the HPI.�All systems are reviewed negative except above.
�-
Vital Signs:
The patient has a Temp36.5 C Pulse 80 Resp 26 BP 151/74 Pulse Ox 95
Physical Exam:
The patient is afebrile, heart sounds S1 and S2 are (regular / irregular), and chest is clear to auscultation bilaterally. Right knee tenderness
Neurologic Examination:
The patient is awake, confused and oriented x person and place. (He is able to follow commands and answer questions appropriately. There is no aphasia or dysarthria. On cranial nerve assessment, pupils are 3 mm bilateral, round and reactive to
light and accommodation. Visual arreguin are full. Extraocular movements are intact. Facial sensations are intact and bilaterally symmetrical, there is no facial asymmetry. Hearing is intact bilaterally to normal conversation volume. Tongue palate
and uvula are midline. Sternocleidomastoid strengths are full bilaterally. Motor strengths are 5/5 bilateral upper and lower extremities on medical research [place] scale. There is no drift or involuntary movement noted. Deep tendon reflexes are 2+
bilateral upper and lower extremities and Babinski is absent bilaterally. Sensations of pain, touch, temperature and vibration are intact and bilaterally symmetrical. There was no extinction noted on double simultaneous stimulation. Coordination is
intact by finger to nose bilaterally. Patient unable to stand or walk.
He needs two-person assist(lumbar DJD/osteoarthritis of the knees)
Lab Results: Addendum
Neuro Imaging: Chronic right temporal occipital encephalomalacia
Impression:
Mr. MERCEDES GRAY is a 88 year old M who has presented to the hospital with (symptoms/chief complaint) .
Differentials for the patient's presentation include:
1. Seizure disorder
2. Extension of right temporal occipital infarct
Patient has the following risk factors for their symptoms:
Recommendations:
1. CT head
2. EEG
3. Keppra 500 mg twice daily
Discussed patient care with: Hospitalist and family
Allergies
-
Allergies
Allergy/AdvReac Type Severity Reaction Status Date / Time
No Known Allergies Allergy Verified 05/03/24 11:21
Vital Signs and Labs
-
Vital Signs and Labs:
Vital Signs
Temp Pulse Resp BP Pulse Ox
36.5 C 80 26 151/74 95
05/16/24 07:05 05/16/24 08:43 05/16/24 07:48 05/16/24 08:43 05/16/24 07:48
Lab Results
05/16/24 04:34
05/16/24 04:34
PT 13.4 Sec (11.4-14.6) 05/15/24 18:25
INR 1.02 05/15/24 18:25
APTT 24.9 Sec (23.4-35.0) 05/15/24 18:25
Sodium 136 mmol/L (135-145) 05/16/24 04:34
Potassium 3.7 mmol/L (3.5-5.1) 05/16/24 04:34
BUN 50 mg/dl (9-20) H 05/16/24 04:34
Glucose 189 mg/dl (70-99) H 05/16/24 04:34
Calcium 8.4 mg/dl (8.4-10.2) 05/16/24 04:34
Irx-H-Zzwunuvgimz Pept 958 pg/ml 05/15/24 13:58
LDL Cholesterol, Calc 15 mg/dl 05/16/24 04:34
Medications
-
Active Medications
Generic Name Dose Route Start Last Admin
Trade Name Freq PRN Reason Stop Dose Admin
Acetaminophen 650 mg 05/15/24 12:33 05/15/24 20:36
Acetaminophen 325 Mg Tablet PO 06/12/24 12:32 650 mg
Q6HPRN PRN Administration
fever>100.5F brakthru mild oxana
Albuterol/Ipratropium 3 ml 05/15/24 16:00 05/16/24 07:47
Ipratropium 0.5/Albuterol 3 Mg (3 Ml Ampul) INH 3 ml
R QID DOMINICK Administration
Protocol
Allopurinol 100 mg 05/16/24 08:00 05/16/24 08:44
Allopurinol 100 Mg Tablet PO 06/13/24 07:59 100 mg
DAILY DOMINICK Administration
Amlodipine Besylate 5 mg 05/16/24 08:00 05/16/24 08:44
Amlodipine 5 Mg Tablet PO 06/13/24 07:59 5 mg
DAILY DOMINICK Administration
Aspirin 81 mg 05/17/24 08:00
Aspirin 81 Mg Chewable Tablet PO 06/14/24 07:59
DAILY DOMINICK
Atorvastatin Calcium 40 mg 05/15/24 22:00 05/15/24 20:34
Atorvastatin (Lipitor) 40 Mg Tablet PO 06/12/24 21:59 40 mg
HS DOMINICK Administration
Bisacodyl 10 mg 05/15/24 16:06
Bisacodyl 10 Mg Rectal Suppository RECTAL 06/12/24 16:05
[id number] PRN
constipation
Carvedilol 6.25 mg 05/15/24 20:00 05/16/24 08:43
Carvedilol 6.25 Mg Tablet PO 06/12/24 19:59 6.25 mg
BID DOMINICK Administration
Cefepime HCl 1,000 mg 05/16/24 14:00
Cefepime Hcl 1,000 Mg/11.3 Ml Vial IV
Q8H DOMINICK
Dextrose 12.5 grams 05/15/24 16:06
Dextrose 50% (0.5 Grams/Ml) 50 Ml Syringe IV 06/12/24 16:05
[id number] PRN
hypoglycemia
Protocol
Docusate Sodium 100 mg 05/16/24 12:00
Docusate Sodium 100 Mg Capsule PO 06/13/24 11:59
NOON DOMINICK
Enoxaparin Sodium 40 mg 05/15/24 18:00 05/15/24 20:34
Enoxaparin Sodium 40 Mg/0.4 Ml Syringe SC 06/12/24 17:59 40 mg
QPM DOMINICK Administration
Glucagon 1 mg 05/15/24 16:06
Glucagon 1 Mg Vial IM 06/12/24 16:05
PRN PRN
hypoglycemia
Protocol
Vancomycin HCl 1 each/ Device 0 mls @ 0 mls/hr 05/16/24 02:00
IV
PER PROTOCOL DOMINICK
Protocol
As Directed
Vancomycin HCl 100 mls @ 100 mls/hr 05/16/24 12:00
Vancocin Hcl 500 Mg IV 05/16/24 12:59
ONCE@1200 ONE
Insulin Aspart 0 units 05/15/24 16:30 05/16/24 08:42
Insulin Aspart Low Resistance 300 Units/3 Ml Pen.Injctr SC 06/12/24 16:29 1 units
AC DOMINICK Administration
Protocol
Levetiracetam 1,000 mg 05/15/24 20:00 05/16/24 08:45
Levetiracetam (100 Mg/Ml) 500 Mg/5 Ml Vial IV 06/12/24 19:59 1,000 mg
Q12 DOMINICK Administration
Meclizine HCl 25 mg 05/15/24 16:06
Meclizine 25 Mg Tablet PO 06/12/24 16:05
Q8HPRN PRN
dizziness
Mirtazapine 15 mg 05/15/24 22:00 05/15/24 20:35
Mirtazapine 15 Mg Regular Release Tablet PO 06/12/24 21:59 15 mg
HS DOMINICK Administration
Polyethylene Glycol 17 grams 05/15/24 16:06
Polyethylene Glycol Powder 17 Grams Packet PO 06/12/24 16:05
DAILYPRN PRN
constipation
Sodium Chloride 0 flush 05/15/24 14:00
Sodium Chloride 0.9% (Flush) Syringe IV 06/12/24 13:59
PER PROTOCOL DOMINICK
Sterile Water 10 ml 05/16/24 14:00
Sterile Water For Injection 10 Ml Vial IV 06/13/24 13:59
Q8H DOMINICK
Tamsulosin HCl 0.4 mg 05/16/24 08:00 05/16/24 08:44
Tamsulosin 0.4 Mg Capsule PO 06/13/24 07:59 0.4 mg
DAILY DOMINICK Administration
Tramadol HCl 50 mg 05/15/24 13:22 05/16/24 09:51
Tramadol Hcl 50 Mg Tablet PO 06/12/24 13:21 50 mg
Q6HPRN PRN Administration
mod pain
Home Medications
�Medication �Instructions �Recorded
ascorbic acid (vitamin C) 500 mg 500 mg PO DAILY 09/07/14
tablet (Vitamin C)
aspirin 325 mg tablet 325 mg PO HS 09/07/14
atorvastatin 40 mg tablet 40 mg PO HS 09/07/14
carvedilol 6.25 mg tablet (Coreg) 12.5 mg PO BID 01/20/16
meclizine 25 mg tablet 25 mg PO Q8HPRN PRN dizziness #10 07/18/18
tabs
allopurinol 100 mg tablet 100 mg PO DAILY 05/15/24
amlodipine 5 mg tablet (Norvasc) 5 mg PO DAILY 05/15/24
docusate sodium 100 mg capsule 100 mg PO NOON 05/15/24
(Colace)
furosemide 80 mg tablet 60 mg PO DAILY 05/15/24
metformin 500 mg tablet 500 mg PO BID 05/15/24
mirtazapine 15 mg tablet 15 mg PO HS 05/15/24
tamsulosin 0.4 mg capsule (Flomax) 0.4 mg PO DAILY 05/15/24
--- NOTE | 2024-05-16 11:08 | CHAP ---
Fr. Gianfranco Burch of [facility] in [place] will be coming to administer Last Rites to the patient, at his family's request. Fr. Burch is expected late morning/early afternoon today.
[2024-05-16 11:55] LABS: Glucose - Point of Care 173 mg/dl (70-99)
[2024-05-16] MEDS: VANCOCIN HCL 500 MG 100 IV (13:08)
[2024-05-16] MEDS: STERILE WATER FOR INJECTION 10 ML IV ×2 (13:09→21:27)
[2024-05-16] MEDS: MAXIPIME 1000 MG IV ×2 (13:09→21:27)
[2024-05-16] MEDS: MIRALAX 17 GRAMS PO (13:09)
[2024-05-16] MEDS: COLACE 100 MG PO (13:09)
--- NOTE | 2024-05-16 14:30 | W.PN.HOSP.TC ---
Today's Communication/Plan
-
Discussed with the patient, his and daughter and son at the bedside
Discussed with the nurse
Assessment / Plan
Assessment / Plan
88-year-old male presented to the hospital with right mechanical fall at home on his right knee down, no any dizziness is uncertain of syncope or loss of questions of seizure prior to the fall.
Acute hypoxic failure:
Unclear causes, CT was negative for PE on infiltration, but later that day had a repeat CT head and neck which showed right upper lobe infiltration therefore started on a broad-spectrum antibiotic specially procalcitonin extremely elevated
For now continue Vanco and change Zosyn to cefepime because of the worsening renal function, will continue vancomycin for now because of the severe leukocytosis and elevated procalcitonin level if MRSA screen was negative
Get a respiratory culture
Blood culture not collected
Continue oxygen and try to wean off, currently on 3 L
Cardiac monitoring
Monitor vital sign
If not improving then will consider pulmonary and/or ID consult
Expressive aphasia: Resolved, concern was for seizure
Discussed with neurology had an EEG and result pending
Neurology recommended discharge on Keppra eventually because of the large right temporal prior stroke make him prone to seizure
CTA reviewed
MRI of brain pending
Neurology input appreciated
Mechanical fall.
PT OT and assess functional status
Fall precaution
Right knee pain:
Likely secondary to right knee pain and swelling, x-ray showed no fracture or dislocation
Feels better than yesterday.
Pain medication with Ultram and Tylenol avoid NSAID because of chronic kidney disease.
PT OT
Ambulatory dysfunction, secondary to right knee pain
PT OT and assess functional status
Sinus bradycardia
No clear causes
Carvedilol decreased initially but then put back to 12.5
Cardiology planning ling monitor placement tomorrow
vehicle monitor technician
TSH is normal
Monitor vital sign
Recheck lab
Acute on chronic renal failure: Baseline creatinine around 1.5
Increase today to around 2, likely multifactorial including IV contrast that he received yesterday, IV diuresis
Infection
Admission change Zosyn to cefepime to avoid renal effect with Vanco
Avoid nephrotoxin
If not improved then will consider nephrology consult
Acute on chronic congestive heart failure
Still on IV diuresis per cardiology
Recheck lab
Chronic QTc interval prolongation:
Known history: Electrolyte and TSH in about
Continue to monitor
Left bundle branch block: Chronic
Get a troponin
Cardiology consult
Diabetes mellitus: Glucoscan
He is on metformin and his creatinine ranging from 1.4-1.6 should not be back on metformin
Continue to hold metformin
monitor blood sugar closely
Hypertension:
Continue carvedilol and amlodipine
monitor pressure closely
Low threshold to upgrade to higher level of care if needed
All discussed with the patient and the family and they expressed understanding
CODE STATUS full code
DVT prophylaxis: Level
Anticipated Discharge: > 48 hours
Subjective/Interval History
-
Date of Service: May 16, 2024
Seen and examined earlier, sleepy but arousable, overall looks and feels better, yesterday evening had some MARKET RESEARCH CONSULTANT for mental status change and difficulty expressing himself yesterday evening, therefore had a stat CT brain and was negative and
neurology contacted was concerning about his seizures loaded with Keppra and started Keppra IV.
Given yesterday evening around 2099, look like he had increased requirement of oxygen where the CT head showed new right upper lobe infiltration concerning for pneumonia which was new compared to the earlier in the day imaging
Abdominal distended and tympanic passing gas but did not move his bowels in the last couple of days according to the , otherwise denies any nausea or vomiting or any chest pain or shortness of breath or fever or chill.
Nurse, and daughter at the bedside.
Objective Data
-
Labs:
Laboratory Results
05/16/24
04:34
WBC 22.3 H
Hgb 13.3
Hct 37.1 L
Plt Count 110 L D
Sodium 136
Potassium 3.7
Chloride 104
Carbon Dioxide 23
BUN 50 H
Creatinine 2.0 H
Glucose 189 H
Calcium 8.4
Total Bilirubin 2.4 H
AST 21
ALT 19
Alkaline Phosphatase 95
Vital Signs:
Vital Signs
Temp Pulse Resp BP Pulse Ox
97.8 F 76 24 134/71 90
05/16/24 11:30 05/16/24 12:24 05/16/24 12:24 05/16/24 12:24 05/16/24 12:18
I&O
05/15/24 05/16/24 05/17/24
07:59 07:59 07:59
Intake Total 350 / 350
Output Total 300 / 300
Balance 50 / 50
Review of Systems
-
All other systems: Reviewed and negative
[2024-05-16] MEDS: DUONEB INH (15:28)
[2024-05-16 17:04] LABS: Glucose - Point of Care 171 mg/dl (70-99)
[2024-05-16] MEDS: LOVENOX 40 MG SC (17:23)
[2024-05-16] MEDS: DULCOLAX 10 MG RECTAL (19:57)
[2024-05-16 20:08] LABS: Glucose - Point of Care 166 mg/dl (70-99)
--- NOTE | 2024-05-16 21:08 | W.PN.UPDATE ---
Update Note
Progress Note Update
Per nursing staff, patient had no BM in 2 days, abdomen distended and firm. Patient complained of lower abdominal discomfort. Patient received Colace, MiraLAX, and Dulcolax suppository today with no result. One exam, abdomen is distended and firm,
non tender, normal abdominal sound.
Stat abdomen x-ray ordered, enema, and simethicone.
Abdominal x-ray shows
Bowel: There is air-filled colonic loops throughout the abdomen.
Peritoneum: No evidence of pneumoperitoneum noting limited evaluation on supine view.
Osseous/calcific structures: No abnormal calcifications or osseous abnormalities.
IMPRESSION:
Findings suggesting colonic ileus.
Will place patient on NPO diet, GI consult, and NGT for air decompression
This am potassium 3.4 replated as needed
Cr is trending up from 2.4 to 3.2, nephrology consult was added.
[2024-05-16] MEDS: MYLICON 80 MG PO (21:26)
[2024-05-16] MEDS: REMERON 15 MG PO (21:26)
[2024-05-16] MEDS: LIPITOR 40 MG PO (21:26)
--- NOTE | 2024-05-16 23:01 | PTCARENOTE ---
Patient received from day shift. On assessment patients abdomen was very distended and round. Patient's stated his last bowl movement was two days ago. Gave patient Dulcolax suppository. Patient still had distention, discomfort and no BM and
despite suppository. Notified AIRPLANE GASTANK LINER ASSEMBLER and AIRPLANE GASTANK LINER ASSEMBLER came to bedside. AIRPLANE GASTANK LINER ASSEMBLER ordered 500 ml tap water enema, PO Simethicone and abdominal xray which showed colonis ileus. GI consult ordered for AM. Continuing to monitor patient.
[2024-05-17] VITALS (14 sets, daily range): BP systolic 116–148; BP diastolic 54–84; BMI 30.4; BMI 30.1
[2024-05-17 04:22] LABS: ALT (SGPT) 19 U/L (0-50); AST (SGOT) 23 U/L (17-59); Albumin 3.9 g/dl (3.5-5.0); Alkaline Phosphatase 96 U/L (38-126); Blood Urea Nitrogen 64 mg/dl (9-20); Calcium 8.4 mg/dl (8.4-10.2); Carbon Dioxide 21 mmol/L (22-30); Chloride 100 mmol/L (98-107); Estimated Creatinine Clearance 22 ml/min; Glucose 147 mg/dl (70-99); Magnesium 1.9 mg/dl (1.6-2.3); Potassium 3.4 mmol/L (3.5-5.1); Sodium 138 mmol/L (135-145); Total Bilirubin 2.4 mg/dl (0.2-1.3); Total Protein 6.4 g/dl (6.3-8.2); eGFR 17.93
[2024-05-17 04:51] LABS: % Basophils 0.3 % (0-2); % Immature Granulocytes 0.8 % (0-0.5); % Lymphocytes 6.6 % (20.5-51.1); % Neutrophils 79.3 % (42.2-75.2); Absolute Basophils 0.1 10^3/uL (0-0.2); Absolute Eosinophils 1.4 10^3/uL (0-0.7); Absolute Immature Granulocytes 0.1 10^3/uL (0-0.05); Absolute Lymphocytes 1.2 10^3/uL (1.2-3.4); Absolute Monocytes 0.9 10^3/uL (0.1-0.6); Absolute Neutrophils 14.1 10^3/uL (1.4-6.5); Hematocrit 39.5 % (39.0-52.0); Mean Corp Hgb Conc. 35.4 g/dL (33.0-37.0); Mean Corpuscular Volume 90.2 fL (80.0-94.0); Nucleated Red Blood Cells % 0 % (-); Red Blood Cell Count 4.38 10^6/uL (4.70-6.10); Red Cell Dist. Width 13.2 % (11.5-14.5); White Blood Cell Count 17.7 10^3/uL (4.8-10.8)
[2024-05-17] MEDS: MAXIPIME 1000 MG IV ×2 (05:41→09:49)
[2024-05-17] MEDS: KCL 270 MEQ IV (05:41)
[2024-05-17] MEDS: STERILE WATER FOR INJECTION 10 ML IV ×2 (05:41→09:48)
[2024-05-17 06:00] LABS: Glucose - Point of Care 163 mg/dl (70-99)
[2024-05-17 06:52] LABS: Mean Platelet Volume 10.5 fL (7.4-10.4); Platelet Count 78 10^3/uL (130-400)
[2024-05-17] MEDS: DUONEB 3 ML INH ×2 (07:24→11:20)
--- NOTE | 2024-05-17 07:44 | EEG.RPT ---
Electroencephalogram Report
Recording
Date of EE05/17/24
Type of EEG: Routine
Length of EEG recordin minutes
Done with Video Recording: Yes
Patient Status: Inpatient
Recording Conditions: Awake and Drowsy
Hyperventilation Performed: No
Photic Stimulation Performed: Yes
Report
LESS THAN 1 HOUR EEG REPORT
LESS THAN 1 HOUR EEG INTERPRETATION:
Minimally abnormal study for age based on generalized slowing demonstrated bihemispherically equally
CLINICAL CORRELATION:
Although normative values not been established for a person of this advanced age the patient�s symmetry of the background suggests that this study was suggestive of mild bihemispheric cortical dysfunction. No epileptiform features were demonstrated.
If concerns remain regarding epilepsy, prolonged monitoring may be of assistance.
Clinical correlation is advised.
METHODS:
A 21-channel digital electroencephalogram (EEG) was performed in the [facility]. The 10/20 international system of electrode placement was used with ECG and lateral/vertical eye movements recorded. [facility] system
quantitative analysis was performed.
IMPRESSION(S):
Quality of study
Fair, with muscle artifact
Background
Expected amplitude
Anterior-posterior voltage gradient differentiation: Fair
Theta frequency usually, rare alpha, background demonstrated
Sleep
Drowsiness present
Hyperventilation
Not performed
Photic Stimulation
Failed to activate the record
ECG
Normal rhythm
--- NOTE | 2024-05-17 09:36 | CON.GI ---
Addendum entered and electronically signed by Jennifer Mcgee NP 05/17/24 13:08:
Per nursing staff, family now does not want hospice. She will attempt rectal trumpet and if unable will contact GI service to attempt placement. Monitor clinically with serial abdominal exams.
Addendum entered and electronically signed by Quyen Marquez MD 05/17/24 10:33:
I saw and examined the patient.
The PLAYGROUND SUPERVISOR or PA's note was reviewed and I agree with the note.
Comment:
PT is a 88 y/o man with a hx of a fall who has progressive abdominal distention. No vomiting but hiccups.
abd: distended but not tense
xray shows colonic dilation but not small bowel
impression:
ileus
abd pain
plan:
keep electrolytes corrected especially potassium
rectal tube or trumpet
turn patient if possible to mobilize gas
no need for NGT unless vomiting
would follow clinically not by xray
hospice as per family
d/w nurse this am and family
Original Note:
Consultation
-
Date/Time Consultation Requested: 05/17/24
Date/Time Consultation Performed: 05/17/24 @ 09:00
Requesting Provider: PATRICK Carvalho
Performing Provider: PATRICK Henry; Dr. Quyen Marquez
Reason for Consultation: colonic ileus
Medical History
Chief Complaint / HPI
Chief Complaint: mechanical fall, right knee pain
History of Present Illness:
The patient is an 88-year-old male with a past medical history significant for Chronic kidney disease, CHF, hypertension, peripheral neuropathy, prior CVA, left bundle branch block, mood disorder, type 2 diabetes, who presented to the emergency room
for evaluation after a mechanical fall with worsening right knee pain. Upon review of admitting records, the patient had fallen several weeks ago and was evaluated in the hospital undergoing x-rays of the right knee, although no evidence of
fracture. He was evaluated outpatient by his primary care physician and was placed on a taper of steroids, but unfortunately had another fall at home prior to his admission on Monday. His is at the bedside to assist with the HPI given that
the patient is sleeping and has had somewhat of altered mental status. She notes that he had fallen earlier this week, and was noted to have some hypoxia and altered mentation via EMS on the way to the hospital. There was concern for possible
seizure and he was placed on oxygen. He underwent CT imaging of the brain which was unrevealing for acute process. Due to his hypoxia a chest x-ray was performed which showed no evidence of pneumonia. He was found to be severely bradycardic as
well although spontaneously did improve to sinus rhythm and irregular rate and his beta-hannah dosage was decreased after evaluation from cardiology. CTA was done to rule out PE and was negative. Due to at an elevated proBNP he did receive 1 dose
of IV Lasix, but his renal function has progressively been declining. It was suspected he may have had an aspiration event and repeat chest x-ray showed a possible right upper lobe pneumonia and he was placed on IV Zosyn and Vanco. He reportedly
has been having some difficulty with word finding and underwent an MRI of the brain which showed no acute intracranial hemorrhage or acute stroke but he did have some changes in the right temporal and occipital lobes thought to be from a possible
prior stroke. He was placed on Keppra and underwent an EEG per neurology recommendations. The patient has steadily been declining since admission, with increasing abdominal distention and no bowel movement since Monday. The patient's reports
that he normally is very regular and has bowel movements daily with taking Colace. She reports he had a good bowel movement on Monday with no evidence of melena or hematochezia. He was eating well prior to this. She reports that he did have some
weight loss unintentionally several months ago about 25 pounds but his weight had stabilized since then. He was not having any nausea or vomiting at home. He did not have any fevers or chills. He had no signs of bleeding otherwise. He does take
325 mg of aspirin daily otherwise no blood thinners. He has no history of bowel obstruction. He had a prior colonoscopy about 10 years ago with no polyps removed. His father did have a history of colorectal cancer. X-ray imaging of the abdomen
was done yesterday evening showing findings consistent with a colonic ileus. He was made n.p.o. at that time and we were asked to evaluate for further management. Upon discussion with the patient's family, they are pursuing hospice. Routine labs
were reviewed from today showing a WBC 17.7, platelets 78,000, sodium 138, potassium 3.4, BUN 64, creatinine 3.2, total bilirubin 2.4, with otherwise normal LFTs.
Past Medical History
Past Medical History: CHF, CVA, HTN, NIDDM and Other (Chronic kidney disease stage II-III, left bundle branch block, mood disorder, recent fall, peripheral neuropathy)
Past Surgical History: Orthopedic (cervical spine surgery), Tonsilectomy and Other (cataract surgery)
Social History
Tobacco: Former Smoker (remote history (obtained from the chart))
Alcohol: Daily (1-2 glasses of wine and occasional beer (no hard liquor))
Drug: None
Personal:
Living: With Family
Family History
Family History: Cancer (father- colon cancer)
Allergies / Home Medications
Allergy/AdvReac Type Severity Reaction Status Date / Time
No Known Allergies Allergy Verified 05/03/24 11:21
�Medication �Instructions �Recorded
ascorbic acid (vitamin C) 500 mg 500 mg PO DAILY Supplement 09/07/14
tablet (Vitamin C)
aspirin 325 mg tablet 325 mg PO HS Blood Clot 09/07/14
Prevention/Tx
atorvastatin 40 mg tablet 40 mg PO HS High Cholesterol 09/07/14
carvedilol 6.25 mg tablet (Coreg) 12.5 mg PO BID Blood Pressure 01/20/16
meclizine 25 mg tablet 25 mg PO Q8HPRN PRN dizziness #10 07/18/18
tabs
allopurinol 100 mg tablet 100 mg PO DAILY Gout 05/15/24
amlodipine 5 mg tablet (Norvasc) 5 mg PO DAILY Blood Pressure 05/15/24
docusate sodium 100 mg capsule 100 mg PO NOON Constipation 05/15/24
(Colace)
furosemide 80 mg tablet 60 mg PO DAILY Fluid 05/15/24
Retention/Swelling
metformin 500 mg tablet 500 mg PO BID Diabetes 05/15/24
mirtazapine 15 mg tablet 15 mg PO HS Mental Health/Anxiety 05/15/24
tamsulosin 0.4 mg capsule (Flomax) 0.4 mg PO DAILY Urinary Issue 05/15/24
Review of Systems
-
History Source: Family
Constitutional: Reports Weight Loss
EENT: Reports No Symptoms
Respiratory: Reports Other (hypoxia)
Cardiac: Reports No Symptoms
Abdomen/GI: Reports Abdominal Pain, Nausea, Constipated and Other (dry heaves)
Musculoskeletal: Reports Other (right knee pain)
Skin: Reports No Symptoms
Neurological: Reports Weakness
Vital Signs
Temp Pulse Resp BP Pulse Ox
98.3 F 80 22 134/84 92
05/17/24 07:00 05/17/24 07:27 05/17/24 07:27 05/17/24 06:00 05/17/24 07:27
Physical Exam
Exam
General: Poor Appetite and Other (Ill, elderly appearing male)
HEENT: Normocephalic, Anicteric and Atraumatic
Respiratory: Other (diminished but clear, no wheezing, rales, or rhonchi)
Cardiac: S1/S2 and Regular Rhythm
GI: Tender (mid/upper abdomen), Distended and Other (hyperactive bowel sounds)
Rectal: Brown and Other (No stool impaction in the rectal vault)
Skin: Warm
Neuro: Other (drowsy but arousable)
Psych: Calm
Results
WBC 17.7 10^3/uL (4.8-10.8) H 05/17/24 03:28
Hgb 14.0 g/dL (13.0-18.0) 08/23/24 03:28
Hct 39.5 % (39.0-52.0) 05/17/24 03:28
MCV 90.2 fL (80.0-94.0) 05/17/24 03:28
Plt Count 78 10^3/uL (130-400) L D 05/17/24 03:28
Absolute Neuts (auto) 14.1 10^3/uL (1.4-6.5) H 05/17/24 03:28
PT 13.4 Sec (11.4-14.6) 05/15/24 18:25
INR 1.02 05/15/24 18:25
APTT 24.9 Sec (23.4-35.0) 05/15/24 18:25
Sodium 138 mmol/L (135-145) 05/17/24 03:28
Potassium 3.4 mmol/L (3.5-5.1) L 05/17/24 03:28
Chloride 100 mmol/L (98-107) 05/17/24 03:28
Carbon Dioxide 21 mmol/L (22-30) L 05/17/24 03:28
BUN 64 mg/dl (9-20) H 05/17/24 03:28
Creatinine 3.2 mg/dL (0.7-1.3) H 05/17/24 03:28
Calcium 8.4 mg/dl (8.4-10.2) 05/17/24 03:28
Total Bilirubin 2.4 mg/dl (0.2-1.3) H 05/17/24 03:28
AST 23 U/L (17-59) 05/17/24 03:28
ALT 19 U/L (0-50) 05/17/24 03:28
Alkaline Phosphatase 96 U/L (38-126) 05/17/24 03:28
Diagnostic Image Results:
05/16/24 XR abdomen: IMPRESSION: Findings suggesting colonic ileus.
Prior GI Procedures:
EGD: none
Colonoscopy: 10 years ago per pt's , no polyps
Assessment / Plan
-
The patient is an 88-year-old male with a past medical history significant for Chronic kidney disease, CHF, hypertension, peripheral neuropathy, prior CVA, left bundle branch block, mood disorder, type 2 diabetes, who presented to the emergency room
for evaluation after a mechanical fall with worsening right knee pain. , now with an overall decline in his prognosis with acute renal failure, hypoxic respiratory failure, and new findings of colonic ileus. He has had no bowel movement since
Monday, with progressive abdominal distention. X-ray imaging done on 05/16 showing colonic ileus, but did not mention any significant stool burden. He has received numerous medications for bowel regimen without any significant bowel movement. He
does have some tenderness on exam but overall seems comfortable. His family is requesting hospice at this time.
Problem list:
-abdominal distention, colonic ileus
-constipation
-Hypoxic respiratory failure 2/2 pneumonia and possible aspiration event
-altered mental status
-thrombocytopenia
-leukocytosis
-elevated bilirubin
-acute renal failure
-bradycardia
-acute on chronic CHF
Other pertinent medical hx:
-CVA
-CKD
-HTN
-neuropathy
-chronic LBBB
-DM2
-Mood disorder
Recommendations:
-Etiology of abdominal distention secondary to ileus versus constipation. Likely multifactorial given prolonged hospitalization, narcotic use, infection, low PO intake, etc.
---Attempted placement of a [employer] rectal tube with RN, but unable to place given the patient's discomfort and clenching. A small amount of liquid stool did come out upon attempt. No significant fecal burden on exam with brown liquid stool.
-After discussion with the patient, he wanted a break and reattempt at a later time. To try a rectal trumpet tube which is smaller and may be easier to place to see if some relief can be obtained
-Can repeat abdominal x-ray later today to make sure that the colonic distention is not worsening
-Will continue n.p.o. at this time given his significant belching and dry heaves. The nurse will reach out to the hospitalist to see what can be converted to IV as far as his medications go
-Serial abdominal exams
-The patient's family is requesting hospice. Would only pursue things that can relieve discomfort at this point in time. They did not wish for any invasive procedures.
-Prognosis is guarded
-Further management pending above. Discussed with Dr. Marquez.
-
-
Thank you for consultation and allowing me to participate in the patient's care. Please call the bond underwriter GI physician during the after hours with any questions or concerns.
[2024-05-17] MEDS: NOVOLOG FLEXPEN-LOW RESISTANCE SC (09:43)
[2024-05-17] MEDS: KEPPRA 1000 MG IV ×2 (09:49→21:35)
[2024-05-17] MEDS: HEPARIN 5000 UNITS SC ×3 (09:49→23:08)
[2024-05-17] MEDS: FLOMAX PO (10:02)
[2024-05-17] MEDS: NORVASC PO (10:02)
[2024-05-17] MEDS: COREG PO (10:02)
[2024-05-17] MEDS: ZYLOPRIM PO (10:03)
[2024-05-17 10:30] LABS: Direct Bilirubin 0.4 mg/dl (0.0-0.4); Lipase 87 U/L (23-300)
[2024-05-17] MEDS: COLACE PO (11:41)
--- NOTE | 2024-05-17 12:00 | CM ---
Patient seen at bedside and CM met with patient and several family members in the family lounge. Patient states that patient lives with her in a condo with 4 steps or a ramp to enter. Patient uses a rollator and has a CPAP but does not use
it any longer. Patient PCP is Dr. Salbador Mccrary and he uses the [facility] in [place]. Patient has used [facility] in the past and they would like to have them again if appropriate. Patient family has had ameeting with the physician and indicated that they
want to continue with medical treatment for a time. Patient family would like to consider referrals to [facility] if needed and/or [facility] if appropriate. CM will continue to follow for discharge planning needs.
Plan; TBD pending functional assessments.
[2024-05-17 12:01] LABS: Glucose - Point of Care 175 mg/dl (70-99)
--- NOTE | 2024-05-17 12:13 | W.PN.CARDCBS ---
Today's Communication / Plan
-
Hold off on Linq monitor with developing ileus and possible palliative care/hospice
Continue to hold Lasix with renal insufficiency
Discussed with nursing
Impression / Plan
-
PCP: Dr. Mccrary
Cardiology: Dr. Miller, last seen 04/19/23
Impression:
Weakness and fall
Recent ER visit for fall and right knee pain 05/03/24
Acute hypoxic respiratory failure
Sinus bradycardia
Abdominal pain and possible ileus
DAVE on CKD 3b
Chronic HF improved EF
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
cLBBB
Hyperlipidemia
Chronic benign pericardial cyst
h/o right hemispheric CVA 2013
stroke alert 05/15/[address] head
Possible atrial tachycardia with aberrancy overnight 05/15/24
Nonischemic myocardial injury
Echo 02/2014: [facility] study, EF 25%
Echo 08/15/22: EF 55 to 60%, no MR, mild TR with PAP 20 to 25 mmHg
Echo 05/16/24: Ejection fraction 45% with marked paradoxical septal motion, mild AI
Plan:
Plan was for Linq monitor given bradycardia as well as tachycardia
He now has ileus and nursing reports palliative care/hospice is being considered
Will hold off on Linq monitor
Lasix on hold with worsening renal insufficiency and creatinine of 3.2 on 05/17
He had been on losartan the past but this should be held with renal insufficiency
HPI: -Patient came to [facility] today after a fall at home and had an episode of sinus bradycardia with consultation to cardiology. Patient was in [facility] 05/03/24 with a fall that patient and describe as leg weakness resulting in fall and then right
knee pain. Patient had a negative CT head and as discharged to home. He followed up with his PCP 05/09/24 and was started on prednisone for ongoing right knee pain. BP 120/60 and HR 68 at that office visit. Patient says that he awoke early this
morning to urinate, but his bedside urinal was full. His tried to help him stand and he was ambulating with a walker when he fell obtaining a sweater out of the closet. Right knee pain is now much worse. Patient was not SOB at home. No LOC.
Paramedics reported tremulous hands, but no seizure and again no change in level of consciousness. Patient has become increasingly hypoxic in the ER and is now wearing 4 L and sat'ing at 89%. He appears dyspneic and frail, but denies SOB. Tele
reviewed and he had an episode of sinus bradycardia, but was asymptomatic. His reports dizziness every 6 weeks or so that responds to Meclizine at home.
Progress Note - Public Defender
Subjective
Date of Service: May 17, 2024
Appears confused.
Objective
Labs:
05/17/24 03:28
05/17/24 03:28
Labs
Hgb 14.0 g/dL (13.0-18.0) 05/17/24 03:28
Hct 39.5 % (39.0-52.0) 05/17/24 03:28
Plt Count 78 10^3/uL (130-400) L D 05/17/24 03:28
PT 13.4 Sec (11.4-14.6) 05/15/24 18:25
INR 1.02 05/15/24 18:25
APTT 24.9 Sec (23.4-35.0) 05/15/24 18:25
Sodium 138 mmol/L (135-145) 05/17/24 03:28
Potassium 3.4 mmol/L (3.5-5.1) L 05/17/24 03:28
BUN 64 mg/dl (9-20) H 05/17/24 03:28
Creatinine 3.2 mg/dL (0.7-1.3) H 05/17/24 03:28
Glucose 147 mg/dl (70-99) H 05/17/24 03:28
Troponins
05/15/24 05/15/24 05/15/24
13:25 13:58 16:06
Troponin I Cancelled 0.053 H* Cancelled
05/15/24 05/15/24 05/15/24
18:24 22:06 23:04
Troponin I 0.103 H* D Cancelled 0.124 H*
05/16/24 05/16/24 05/16/24
02:00 04:34 06:00
Troponin I Cancelled 0.112 H* Cancelled
Vital Signs and I&O:
Vital Signs
Temp Pulse Resp BP Pulse Ox
98.3 F 82 18 134/84 94
05/17/24 07:00 05/17/24 11:30 05/17/24 11:30 05/17/24 06:00 05/17/24 11:30
Vital Signs
Temp Pulse Resp BP Pulse Ox
98.3 F 82 18 134/84 94
05/17/24 07:00 05/17/24 11:30 05/17/24 11:30 05/17/24 06:00 05/17/24 11:30
Intake & Output
05/15/24 05/16/24 05/17/24 05/18/24
06:59 06:59 06:59 06:59
Intake Total 350 / 350
Output Total 300 / 300 450 / 450
Balance 50 / 50 -450 / -450
Physical Exam
Physical Exam
General: Well developed, well nourished in NAD.
Neck: Supple, no JVD, HJR, carotids +2 B/L, no bruits bilaterally.
Heart: Non displaced PMI, RRR, no murmurs, No S3, S4, no rubs.
Lungs: Poor effort
Abdomen: Distended
Extremities: No clubbing, cyanosis or edema bilaterally.
Neuro: Grossly nonfocal, awake, alert and oriented x3.
[2024-05-17] MEDS: D5/0.9% SODIUM CHLORIDE 1000 IV (12:30)
[2024-05-17] MEDS: LOPRESSOR 2.5 MG IV ×3 (12:30→23:08)
[2024-05-17] MEDS: NOVOLOG FLEXPEN-LOW RESISTANCE 1 UNITS SC ×2 (12:31→18:12)
--- NOTE | 2024-05-17 13:18 | W.PN.HOSP.TC ---
Addendum entered and electronically signed by Alex Neumann MD 05/17/24 16:01:
Other impression:
Congestive heart failure with preserved ejection fraction.
Acute sepsis: Not present on admission
Toxic encephalopathy
Original Note:
Today's Communication/Plan
-
and multiple children
Assessment / Plan
Assessment / Plan
88-year-old male presented to the hospital with right mechanical fall at home on his right knee down, no any dizziness is uncertain of syncope or loss of questions of seizure prior to the fall.
Physical exam:
General: Awake, lethargic but oriented x3, not in distress and holds appropriate conversation.
HEENT: No active discharge, ecchymosis or bruising, moist lips, tongue and mucous membrane.
Eyes: No discharge or red conjunctiva, no nystagmus, pupils are reactive and equal
Neck:Supple, no JVD no bruit no goiter.
Respiratory: Normal AP contour and diameter, normal chest wall movement, normal respiratory effort, no respiratory distress,
Lungs: Good air entry bilaterally, no wheezing or rhonchi, no rales or crackles
Heart: S1, S2 regular, normal rate, no added sound.
Gastrointestinal: Distended, tympanic, sluggish bowel sound, soft, nontender, no guarding or rigidity or organomegaly
Musculoskeletal: , no chest wall abnormality or tenderness. no muscle tenderness or any joint swelling or tenderness.
Extremities: Mild lower EXTR pitting edema, good peripheral pulses,
Skin: Warm and dry, no ulceration, normal color.
Acute hypoxic failure:
Unclear causes, CT was negative for PE on infiltration, but later that day had a repeat CT head and neck which showed right upper lobe infiltration therefore started on a broad-spectrum antibiotic specially procalcitonin extremely elevated
Continue cefepime changed to every 12 worsening renal function, DC vancomycin since MRSA screen is negative
Continue oxygen and try to wean off, currently on 3 L
Cardiac monitoring
Monitor vital sign
If not improving then will consider pulmonary and/or ID consult
Severe sepsis with oral multiple dysfunction including hypoxia, acute on chronic renal failure, encephalopathy
Likely secondary to pneumonia
Continue cefepime as above
Oxygen and try to wean off
Monitor vital sign closely
Abdominal pain and distention: Likely secondary to ileus.
GI input appreciated no need for NG tube now since there is no nausea or vomiting while rectal tube recommended patient did not want initially but okay to be retry to later.
Strict n.p.o.
Change carvedilol to Lopressor IV with holding parameter
Pain and nausea medication as needed
Expressive aphasia: Resolved, concern was for seizure
Discussed with neurology had an EEG and result showed no epileptiform wave, but neurology recommended to continue Keppra
Neurology recommended discharge on Keppra eventually because of the large right temporal prior stroke make him prone to seizure
CTA reviewed
MRI of brain showed no acute abnormality
Neurology input appreciated
Mechanical fall.
PT OT and assess functional status
Fall precaution
Right knee pain:
Likely secondary to right knee pain and swelling, x-ray showed no fracture or dislocation
Feels better than yesterday.
Pain medication with Ultram and Tylenol avoid NSAID because of chronic kidney disease.
PT OT
Ambulatory dysfunction, secondary to right knee pain
PT OT and assess functional status
Sinus bradycardia
No clear causes
Carvedilol decreased initially but then put back to 12.5
Cardiology hold off plan for monitor placement
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
TSH is normal
Monitor vital sign
Recheck lab
Acute on chronic renal failure: Baseline creatinine around 1.5
Yesterday was 2 today is 3.2, likely multifactorial including IV contrast that he received yesterday, IV diuresis and infection
Start IV fluid and monitor for fluid status
Nephrology consult
Avoid nephrotoxin
Acute on chronic congestive heart failure, resolved on of diuresis
Cardiac preparation
Recheck lab
Chronic QTc interval prolongation:
Known history
Cardiology on board
TSH is normal and potassium was 3.4 today has been replaced
Continue to monitor
Left bundle branch block: Chronic
Get a troponin
Cardiology consult
Diabetes mellitus: Glucoscan
Continue to hold metformin
monitor blood sugar closely
Hypertension:
Lopressor IV
monitor pressure closely
Goal of care
All discussed with the patient and the family and they expressed understanding, as hospice and comfort were mentioned to them.
Had a family meeting with the and multiple children, patient's poor and critical situation explained to them in detail and expressed understanding. For now the CODE STATUS changed to DNR DNI while they want to continue actively treating him
for another day or 2 and reassess then if not improving by then they will consider changing the goal of care to hospice and comfort measures.
Meeting with the family and all the question answered to the best of my knowledge and they all expressed understanding.
Discussed with the nurse and did
CODE STATUS changed to DNR
DVT prophylaxis: Heparin subcu, change Lovenox to heparin because of the worsening renal
Prognosis: Poor
Anticipated Discharge: > 48 hours
Subjective/Interval History
-
Date of Service: May 17, 2024
Seen and examined, lethargic but answer question properly, complaining of abdominal pain and distention and no bowel movement yet denies any nausea or vomiting, does not pass gas but have hiccups, denies chest pain or shortness of breath or fever or
chill.
He was made n.p.o. because of concern of ileus.
Multiple family members at the bedside including and multiple children.
Objective Data
-
Labs:
Laboratory Results
05/17/24
03:28
WBC 17.7 H
Hgb 14.0
Hct 39.5
Plt Count 78 L D
Sodium 138
Potassium 3.4 L
Chloride 100
Carbon Dioxide 21 L
BUN 64 H
Creatinine 3.2 H
Glucose 147 H
Calcium 8.4
Total Bilirubin 2.4 H
AST 23
ALT 19
Alkaline Phosphatase 96
Vital Signs:
Vital Signs
Temp Pulse Resp BP Pulse Ox
98.3 F 76 18 127/75 94
05/17/24 07:00 05/17/24 12:30 05/17/24 11:30 05/17/24 12:30 05/17/24 11:30
I&O
05/16/24 05/17/24 05/18/24
07:59 07:59 07:59
Intake Total 350 / 350
Output Total 300 / 300 450 / 450
Balance 50 / 50 -450 / -450
Review of Systems
-
All other systems: Reviewed and negative
--- NOTE | 2024-05-17 13:45 | PN.CDI ---
CDI
- -
CDI:
Physician Documentation Request
Admit Date: 05/15/24 13:17
Dear Doctor Thien,
Clinical Indicators:
Patient admitted with acute hypoxic respiratory failure.
05/17 PN, 'Severe sepsis with oral multiple dysfunction including hypoxia, acute on chronic renal failure, encephalopathy Likely secondary to pneumonia'
WBC trend:
05/15/24 05/15/24
09:53 18:25
WBC 12.3 H 36.1 H
RR trend on admission:
05/15/24
12:00 05/15/24
12:30 05/15/24
13:00
Pulse 91 98 102
05/15/24
13:30 05/15/24
14:00 05/15/24
14:30
Pulse 106 101 103
05/15/24
15:00 05/15/24
15:30 05/15/24
16:06
Pulse 102 97 102
Please clarify the following:
Sepsis was present on admission
Sepsis was not present on admission
Unable to determine
Sepsis
- Systemic manifestations of infection, with 2 or more SIRS criteria which include:
- Fever >100.4 degrees F or hypothermia < 96.8 degrees F
- Leukocytosis - WBC > 12,000 or leukopenia - WBC < 4,000 or > 10% bands
- Tachycardia > 90 beats per minute
- Tachypnea - RR > 20 breaths per minute or PaCO2 , 32mmHg
Source: Merck Manual 2013
Use of terms such as suspected, likely, concern for, or probable (associated with a specific diagnosis that is being evaluated, monitored, or treated as if it exists) are acceptable and can be coded in the inpatient setting, when documented at the
time of discharge.
Thank you,
Elena Phillips RN BSN
CDI Specialist
available via tiger text
Please use your independent medical judgment in providing your response.
--- NOTE | 2024-05-17 13:53 | PN.CDI ---
CDI
- -
CDI:
Physician Documentation Request
Admit Date: 05/15/24 13:17
Dear Doctor Thien,
Clinical Indicators:
Patient admitted with acute hypoxic respiratory failure.
05/17 PN, 'Severe sepsis with oral multiple dysfunction including hypoxia, acute on chronic renal failure, encephalopathy'
Please clarify the type of encephalopathy:
Acute Metabolic Encephalopathy
Toxic Metabolic Encephalopathy
Other Encephalopathy, please specify
Use of terms such as suspected, likely, concern for, or probable (associated with a specific diagnosis that is being evaluated, monitored, or treated as if it exists) are acceptable and can be coded in the inpatient setting, when documented at the
time of discharge.
Thank you,
Elena Phillips RN BSN
CDI Specialist
available via tiger text
Please use your independent medical judgment in providing your response.
--- NOTE | 2024-05-17 14:01 | PN.CDI ---
CDI
- -
CDI:
Physician Documentation Request
Admit Date: 05/15/24 13:17
Dear Doctor Thien,
Clinical Indicators:
Patient admitted with acute hypoxic respiratory failure.
H & P, PMH: Chronic congestive heart failure with preserved ejection fraction
05/15 Cardiology Consult, 'Chronic HF improved EF...h/o NICM EF 25% in 2013, improved to 55-60% by echo 08/15/22'
05/15 Echocardiogram: 'Mildly reduced ejection fraction of 45%. Stage I diastolic dysfunction suggestive of abnormal relaxation.'
05/17 PN, 'Acute on chronic congestive heart failure, resolved on of diuresis'
Please provide further specificity regarding the most likely type of CHF you are evaluating, treating or monitoring.
HFmrEF
HFpEF
Other, please specify
Use of terms such as suspected, likely, concern for, or probable (associated with a specific diagnosis that is being evaluated, monitored, or treated as if it exists) are acceptable and can be coded in the inpatient setting, when documented at the
time of discharge.
Thank you,
Elena Phillips RN BSN
CDI Specialist
available via tiger text
Please use your independent medical judgment in providing your response.
[2024-05-17] MEDS: DUONEB INH (15:27)
--- NOTE | 2024-05-17 15:47 | W.CON.NEPH ---
Consultation
-
Date/Time Consultation Requested: 05/17/2024 5:09AM
Date/Time Consultation Performed: 05/17/2024 3:48PM
Requesting Provider: Lizandro Quinteros
Performing Provider: Chrystal Jones
Reason for Consultation: DAVE
Medical History
-
Chief Complaint: DAVE
History of Present Illness:
Mr. 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
Briefly, the patient was in the hosptail two weeks ago after a mechanical fall on the R knee. Patient had a negative CTH at that time and was discharged home. He followed up with PCP on 05/09 and was started on steroids for R knee pain. Patient fell
on 05/15 again after attempting to ambulate to the bathroom. Patient was brought in to the ER, was found to have increasing hypoxia and sinus cassandra and was admitted for further management. CTA was done to rule out PE and was negative. Due to at an
elevated proBNP he did receive 1 dose of IV Lasix, but his renal function has progressively been declining. It was suspected he may have had an aspiration event and repeat chest x-ray showed a possible right upper lobe pneumonia and he was placed
on IV Zosyn and Vanco. He reportedly has been having some difficulty with word finding and underwent an MRI of the brain which showed no acute intracranial hemorrhage or acute stroke but he did have some changes in the right temporal and occipital
lobes thought to be from a possible prior stroke. He was placed on Keppra and underwent an EEG per neurology recommendations. The patient has steadily been declining since admission, with increasing abdominal distention and no bowel movement since
Monday.
Today, he is minimally interactive. He states that he is feeling okay. Nephrology is consulted for his worsening kidney function. His Cr baseline appears to be around 1.5-2. His Cr was 1.4 on initial presentation and has risen to 1.7 --> 2.0 -->
3.2. Other notable labs include mild hypokalemia and metabolic acidosis.
Past Medical History
CKD 3b
Chronic HF improved EF
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
cLBBB
Hyperlipidemia
Chronic benign pericardial cyst
h/o right hemispheric CVA 2013
Past Medical History: Other
Past Surgical History: Other (Cervical spine surgery Tonsillectomy Cataract surgery)
Social History
Tobacco: Non-Smoker
Alcohol: Daily
Drug: None
Personal:
Living: With Family
Family History
Family History: Not Pertinent
Allergies / Home Medications
Allergy/AdvReac Type Severity Reaction Status Date / Time
No Known Allergies Allergy Verified 05/03/24 11:21
�Medication �Instructions �Recorded �Confirmed �Type
ascorbic acid (vitamin C) 500 mg 500 mg PO DAILY Supplement 09/07/14 05/15/24 History
tablet (Vitamin C)
aspirin 325 mg tablet 325 mg PO HS Blood Clot 09/07/14 05/15/24 History
Prevention/Tx
atorvastatin 40 mg tablet 40 mg PO HS High Cholesterol 09/07/14 05/15/24 History
carvedilol 6.25 mg tablet (Coreg) 12.5 mg PO BID Blood Pressure 01/20/16 05/15/24 History
meclizine 25 mg tablet 25 mg PO Q8HPRN PRN dizziness #10 07/18/18 05/15/24 Rx
tabs
allopurinol 100 mg tablet 100 mg PO DAILY Gout 05/15/24 05/15/24 History
amlodipine 5 mg tablet (Norvasc) 5 mg PO DAILY Blood Pressure 05/15/24 05/15/24 History
docusate sodium 100 mg capsule 100 mg PO NOON Constipation 05/15/24 05/15/24 History
(Colace)
furosemide 80 mg tablet 60 mg PO DAILY Fluid 05/15/24 05/15/24 History
Retention/Swelling
metformin 500 mg tablet 500 mg PO BID Diabetes 05/15/24 05/15/24 History
mirtazapine 15 mg tablet 15 mg PO HS Mental Health/Anxiety 05/15/24 05/15/24 History
tamsulosin 0.4 mg capsule (Flomax) 0.4 mg PO DAILY Urinary Issue 05/15/24 05/15/24 History
Review of Systems
-
History Source: Patient and Family
All other systems: Negative unless noted
Constitutional: Fatigue
Abdomen/GI: Constipated
Neurological: Weakness
Physical Exam
Vital Signs
Vital Signs
Temp Pulse Resp BP Pulse Ox
98.2 F 72 20 121/56 92
05/17/24 15:38 05/17/24 14:00 05/17/24 14:00 05/17/24 14:00 05/17/24 12:00
Lab Results
WBC 17.7 10^3/uL (4.8-10.8) H 05/17/24 03:28
RBC 4.38 10^6/uL (4.70-6.10) L 05/17/24 03:28
Hgb 14.0 g/dL (13.0-18.0) 05/17/24 03:28
Hct 39.5 % (39.0-52.0) 05/17/24 03:28
Plt Count 78 10^3/uL (130-400) L D 05/17/24 03:28
Sodium 138 mmol/L (135-145) 05/17/24 03:28
Potassium 3.4 mmol/L (3.5-5.1) L 05/17/24 03:28
Chloride 100 mmol/L (98-107) 05/17/24 03:28
Carbon Dioxide 21 mmol/L (22-30) L 05/17/24 03:28
BUN 64 mg/dl (9-20) H 05/17/24 03:28
Creatinine 3.2 mg/dL (0.7-1.3) H 05/17/24 03:28
eGFR 17.93 05/17/24 03:28
Glucose 147 mg/dl (70-99) H 05/17/24 03:28
Calcium 8.4 mg/dl (8.4-10.2) 05/17/24 03:28
Arc-X-Bfoyspgfhha Pept 958 pg/ml 05/15/24 13:58
Albumin 3.9 g/dl (3.5-5.0) 05/17/24 03:28
Physical Exam
General: AOx3, No Distress and Nontoxic
HEENT: PERRL, EOMI, Anicteric, Conjunctivae Clear, Ear/Nose Intact, Hearing Normal, Oropharynx Clear/Moist and Trachea Midline
Respiratory: Crackels, Normal Excursion and Nonlabored Respirations
Cardiac: S1/S2, Regular Rate/Rhythm and No Edema
Breast: N/A
Abdomen: Soft, Nontender and Other (distended, hypoactive bowel sounds)
Rectal: Deferred by Provider
Genito-urinary: No Costovertebral Tender
Musculoskeletal: No Clubbing, No Cyanosis and No Edema
Skin: No Rash, Warm, Dry, No Clubbing, No Cyanosis, Normal Turgor and No Bruising
Neuro: Nonfocal/Grossly Intact
Hematologic/Lymphatic: No Cervical Lymphadenopathy
Psych: Mood/afflect pleasant, Insight/judgement good and Appropriate
Data Reviewed
-
Radiology: Image Personally Visualized and interpreted (findings concerning for ileus)
CT Scan: Report Reviewed by me (IMPRESSION: No CTA evidence for an acute pulmonary thromboembolism within the limitations of respiratory motion artifact and streak artifact. Limited evaluation of the bilateral segmental and subsegmental pulmonary
arteries.)
Labs: Labs Reviewed by me, Discussed with Patient and Discussed with Family
Old Records: Reviewed
Assessment/Plan
-
Assessment:
Weakness and fall
Acute hypoxic failure
encephalopathy
C/f sepsis
abdominal pain and distention -- ileus
DAVE on CKD 3B
Plan:
- Cr baseline around 1.5-2, now elevated to 3.2
- oliguria also noted with 450cc output documented via Jefferson
- differential: ALYSA, BRASH syndrome, ATN (although no documented hypotension), constipation
- UA is completely bland most likely indicating ALYSA and timing makes sense as well
- obtain KUS
- continue with Jefferson in place
- hold amlodipine. will defer beta blockers to cardiology
- please be cautious with ARF and cefepime in the setting of encephalopathy. will decrease to 1g daily. will need to re-eval daily
- agree with gentle fluids as you are doing
- please correct ileus as able
- please trend Cr and accurately document I/Os
- avoid further nephrotoxins
--- NOTE | 2024-05-17 18:00 | PTCARENOTE ---
Patient AAOx2-3 throughout shift. Family at bedside all day. VSS. Frequent mouth care. Abdomen round, distended, FMS placed with immediate small amount of gas released. GI team notified. No nausea/vomiting, intermittent hiccuping. Q2T. 9L midflow,
sats >94%. Slight jaundice today. Patient with minimal amount of urine output today, bladder scan amount 248. Will continue to monitor.
[2024-05-17 18:22] LABS: Glucose - Point of Care 176 mg/dl (70-99)
[2024-05-17] MEDS: REMERON PO (21:35)
[2024-05-17] MEDS: LIPITOR PO (21:35)
[2024-05-17 22:03] LABS: Glucose - Point of Care 178 mg/dl (70-99)
--- NOTE | 2024-05-17 22:10 | W.PN.UPDATE ---
Update Note
Progress Note Update
FURNITURE REFINISHER / Stroke Alert
at bedside and was concerning about changes in the mental status since earlier and increase of weakness.
NIH per nursing staff is 17 for drift of the RT arm,weakness of RT side of the body, aphasic, and slurred speech.
Case was discussed with neurologist alterations sewer and recommendation of Head CT and one time of Aspirin [address].
Neurologist spoke to the over the phone and discussed the plan as well.
Head CT result shows No evidence of acute intracranial abnormality.
[2024-05-17] MEDS: ASPIRIN 325 MG PO (22:17)
[2024-05-17 22:19] LABS: % Basophils 0.2 % (0-2); % Eosinophils 7.4 % (0-6); % Immature Granulocytes 0.8 % (0-0.5); % Lymphocytes 6.2 % (20.5-51.1); % Monocytes 5.7 % (1.7-9.3); % Neutrophils 79.7 % (42.2-75.2); Absolute Immature Granulocytes 0.1 10^3/uL (0-0.05); Absolute Lymphocytes 0.9 10^3/uL (1.2-3.4); Absolute Monocytes 0.8 10^3/uL (0.1-0.6); Absolute Neutrophils 11.1 10^3/uL (1.4-6.5); Hematocrit 33.4 % (39.0-52.0); Hemoglobin 11.9 g/dL (13.0-18.0); Mean Corp Hgb Conc. 35.6 g/dL (33.0-37.0); Mean Corpuscular Hgb 31.6 pg (27.0-31.0); Mean Corpuscular Volume 88.6 fL (80.0-94.0); Mean Platelet Volume 10.7 fL (7.4-10.4); Nucleated Red Blood Cells % 0 % (-); Platelet Count 64 10^3/uL (130-400); Red Blood Cell Count 3.77 10^6/uL (4.70-6.10); Red Cell Dist. Width 13.1 % (11.5-14.5); White Blood Cell Count 13.9 10^3/uL (4.8-10.8)
[2024-05-17 22:32] LABS: Blood Urea Nitrogen 79 mg/dl (9-20); Calcium 7.9 mg/dl (8.4-10.2); Carbon Dioxide 17 mmol/L (22-30); Chloride 104 mmol/L (98-107); Estimated Creatinine Clearance 14 ml/min; Glucose 152 mg/dl (70-99); Potassium 3.8 mmol/L (3.5-5.1); Sodium 138 mmol/L (135-145); eGFR 11.91
--- NOTE | 2024-05-17 22:36 | RR ---
A Rapid Response was called on this patient, please see Rapid Response form.
upon going into room to do patient's neuro checks, noted patient to be aphasic, unable to follow commands. per this is different than he was before. pt able to stay awake and speak in full sentences. NIH-17. RR and stroke alert called. pt sent
down to CT scan. family at bedside.
--- NOTE | 2024-05-17 23:15 | PTCARENOTE ---
labs resulted post RR- BUN 79 creat 4.5. notified covering BREWING TECHNICIAN and nephrology. pt is getting D5NS@ 80ml/hr
[2024-05-18] VITALS (13 sets, daily range): BP systolic 107–165; BP diastolic 60–90; BMI 30.6
[2024-05-18] MEDS: NOVOLOG FLEXPEN-LOW RESISTANCE 2 UNITS SC (00:23)
[2024-05-18 00:26] LABS: Glucose - Point of Care 208 mg/dl (70-99)
--- NOTE | 2024-05-18 01:30 | PTCARENOTE ---
Received order to place porras for acute urinary retention. Spoke with and family at bedside, all in agreement. Porras inserted and pt became restless. STEREOPLOTTER OPERATOR offered to give pt pain medication, denying meds at this time.
[2024-05-18] MEDS: D5/0.9% SODIUM CHLORIDE 1000 IV (03:24)
[2024-05-18 04:35] LABS: % Basophils 0.2 % (0-2); % Eosinophils 7.7 % (0-6); % Immature Granulocytes 0.8 % (0-0.5); % Lymphocytes 5.6 % (20.5-51.1); % Monocytes 6.5 % (1.7-9.3); % Neutrophils 79.2 % (42.2-75.2); Absolute Immature Granulocytes 0.1 10^3/uL (0-0.05); Absolute Lymphocytes 0.7 10^3/uL (1.2-3.4); Absolute Monocytes 0.9 10^3/uL (0.1-0.6); Absolute Neutrophils 10.6 10^3/uL (1.4-6.5); Hematocrit 35.2 % (39.0-52.0); Hemoglobin 12.4 g/dL (13.0-18.0); Mean Corp Hgb Conc. 35.2 g/dL (33.0-37.0); Mean Corpuscular Hgb 32.2 pg (27.0-31.0); Mean Corpuscular Volume 91.4 fL (80.0-94.0); Mean Platelet Volume 11.2 fL (7.4-10.4); Nucleated Red Blood Cells % 0 % (-); Platelet Count 60 10^3/uL (130-400); Red Blood Cell Count 3.85 10^6/uL (4.70-6.10); Red Cell Dist. Width 13.1 % (11.5-14.5); White Blood Cell Count 13.3 10^3/uL (4.8-10.8)
[2024-05-18 04:46] LABS: ALT (SGPT) 16 U/L (0-50); AST (SGOT) 24 U/L (17-59); Albumin 3.4 g/dl (3.5-5.0); Alkaline Phosphatase 87 U/L (38-126); Blood Urea Nitrogen 80 mg/dl (9-20); Carbon Dioxide 17 mmol/L (22-30); Chloride 107 mmol/L (98-107); Estimated Creatinine Clearance 12 ml/min; Glucose 169 mg/dl (70-99); Potassium 3.6 mmol/L (3.5-5.1); Sodium 141 mmol/L (135-145); Total Protein 5.9 g/dl (6.3-8.2); eGFR 10.25
--- NOTE | 2024-05-18 04:49 | PTCARENOTE ---
porras inserted without issues- draining 300ml yellow urine. pt then getting restless/agitated after porras insertion. pt pulling at porras, trying to kick. porras then noted to be bloody. bladder scanned for 0ml, porras flushed without issues. notified
CASUALTY CLAIMS SUPERVISOR of the new bloody urine. will observe and monitor.
[2024-05-18] MEDS: LOPRESSOR 2.5 MG IV (05:53)
[2024-05-18] MEDS: NOVOLOG FLEXPEN-LOW RESISTANCE 1 UNITS SC (06:02)
[2024-05-18 06:13] LABS: Glucose - Point of Care 171 mg/dl (70-99)
[2024-05-18] MEDS: FLOMAX PO (07:50)
[2024-05-18] MEDS: NORVASC PO (07:51)
[2024-05-18] MEDS: ZYLOPRIM PO (07:51)
[2024-05-18] MEDS: HEPARIN 5000 UNITS SC (09:25)
[2024-05-18] MEDS: KEPPRA 1000 MG IV (09:25)
[2024-05-18] MEDS: STERILE WATER FOR INJECTION 10 ML IV (09:27)
[2024-05-18] MEDS: COLACE PO (09:27)
[2024-05-18] MEDS: MAXIPIME 1000 MG IV (09:27)
--- NOTE | 2024-05-18 09:58 | W.PN.HOSP.TC ---
Addendum entered and electronically signed by Ronni Patterson MD 05/18/24 11:55:
family discussions regarding goals of care. Another daughter and son arrived. They all had discussions among themselves.
They are made a decision that they want comfort to be the goal at this point of time. The is very thankful about the care.. She thinks he is ready and just wants him to be comfortable.
They understand the prognosis which is poor and also multiple organ dysfunction including encephalopathy, acute hypoxic respiratory failure, acute kidney injury.
Went over the comfort measures- would hold all active treatments and use medication only for comfort. Let nature takes its course. All are in agreement.
Discussed with RN.
Original Note:
Today's Communication/Plan
-
Await family decison on [facility]
See plan above
Assessment / Plan
Assessment / Plan
88-year-old male presented to the hospital with right mechanical fall at home on his right knee down, no any dizziness is uncertain of syncope or loss of questions of seizure prior to the fall.
Physical exam:
Acute hypoxic failure: Patient requiring 15 L of oxygen and desaturates when he gets moved.
Initial chest CT showed no evidence of PE or infiltrates but the subsequent CT angiogram of the head and neck showed a developing right upper lobe groundglass opacities clinically concerning for infectious pneumonia. Clinical concern for worsening
pulmonary process.
Repeat a chest x-ray to follow and rule out any developing ARDS.
Change in mental status concerning for encephalopathy. Patient is getting worse neurologically and patient currently not conversive and confused. So far CT imaging including couple of CT of the head and MRI showed no evidence of acute stroke.
Possibility of a seizure was entertained. Is on empirical Keppra mycin. EEG is negative.
With developing thrombocytopenia and worsening of creatinine and indirect thrombocytopenia rule out TTP/HUS. Consider hematology input.
Severe sepsis with multiple dysfunction including hypoxia, acute on chronic renal failure, encephalopathy
Likely secondary to pneumonia
Continue cefepime as above
Oxygen and try to wean off
Monitor vital sign closely
Acute on chronic renal failure: Baseline creatinine around 1.5
Yesterday was 2 today is 5.1
Unclear etiology. Appreciate nephrology input.
Start IV fluid and monitor for fluid status
Avoid nephrotoxin
Abdominal pain and distention: Likely secondary to ileus.
GI input appreciated no need for NG tube now since there is no nausea or vomiting while rectal tube recommended patient did not want initially but okay to be retry to later.
Strict n.p.o.
Change carvedilol to Lopressor IV with holding parameter
Pain and nausea medication as needed
Mechanical fall.
PT OT and assess functional status
Fall precaution
Right knee pain:
Likely secondary to right knee pain and swelling, x-ray showed no fracture or dislocation
Feels better than yesterday.
Pain medication with Ultram and Tylenol avoid NSAID because of chronic kidney disease.
PT OT
Ambulatory dysfunction, secondary to right knee pain
PT OT and assess functional status
Sinus bradycardia
No clear causes
Carvedilol decreased initially but then put back to 12.5
Cardiology hold off plan for monitor placement
media monitor
TSH is normal
Monitor vital sign
Recheck lab
Acute on chronic congestive heart failure, resolved on of diuresis
Cardiac preparation
Recheck lab
Chronic QTc interval prolongation:
Known history
Cardiology on board
TSH is normal and potassium was 3.4 today has been replaced
Continue to monitor
Left bundle branch block: Chronic
Get a troponin
Cardiology consult
Diabetes mellitus: Glucoscan
Continue to hold metformin
monitor blood sugar closely
Hypertension:
Lopressor IV
monitor pressure closely
05/17/2024
goal of care discussion of Dr Johnson
All discussed with the patient and the family and they expressed understanding, as hospice and comfort were mentioned to them.
Had a family meeting with the and multiple children, patient's poor and critical situation explained to them in detail and expressed understanding. For now the CODE STATUS changed to DNR DNI while they want to continue actively treating him
for another day or 2 and reassess then if not improving by then they will consider changing the goal of care to hospice and comfort measures.
Meeting with the family and all the question answered to the best of my knowledge and they all expressed understanding.
Discussed with the nurse and did
CODE STATUS changed to DNR
DVT prophylaxis: Heparin subcu, change Lovenox to heparin because of the worsening renal
Prognosis: Poor
Prognosis remains poor with multiorgan dysfunction. Patient is not comfortable.
at bedside and she would like him to be comfortable. She understands the poor prognosis and developing organ dysfunction. She wishes him not to suffer anymore, not to be poked and prodded and just to be comfortable and let him pass
peacefully. Discussed with the daughter who is at bedside and they are going to have a family meeting and let me know.
Start on morphine for comfort.
Total time spent on today's encounter was 52 minutes which included time spent in counseling the patient/family regarding diagnosis and treatment plan as listed above, goals of care, and symptom management. Case was discussed with nursing staff,
specialists, and care coordinators/case management. All labs and imaging personally reviewed by me. Remainder the time spent in detailed review of previous records, lab data, imaging, and other medical provider documentation.
Anticipated Discharge: > 48 hours
Subjective/Interval History
-
Date of Service: May 18, 2024
Patient neurological status is getting worse. Last night events noted.
at bedside who assist him quite a bit of discomfort. She has seen him getting worse neurologically as well. Not making much sense.
RN at bedside-she also sees him not making any meaningful conversations. Moaning and groaning in discomfort especially if he is getting moved.
Objective Data
-
Labs:
Laboratory Results
05/17/24 05/18/24
21:50 04:17
WBC 13.9 H 13.3 H
Hgb 11.9 L 12.4 L
Hct 33.4 L 35.2 L
Plt Count 64 L 60 L
Sodium 138 141
Potassium 3.8 3.6
Chloride 104 107
Carbon Dioxide 17 L 17 L
BUN 79 H 80 H
Creatinine 4.5 H* 5.1 H*
Glucose 152 H 169 H
Calcium 7.9 L 8.0 L
Total Bilirubin 2.0 H
AST 24
ALT 16
Alkaline Phosphatase 87
Vital Signs:
Vital Signs
Temp Pulse Resp BP Pulse Ox
98.9 F 73 22 107/61 95
05/18/24 07:05 05/18/24 06:00 05/18/24 06:00 05/18/24 06:00 05/18/24 04:00
I&O
05/17/24 05/18/24 05/19/24
06:59 06:59 06:59
Output Total 450 / 450 330 / 330
Balance -450 / -450 -330 / -330
Review of Systems
-
Unable to obtain full review of systems at this time due to: Other (Due to cognitive impairment)
Physical Exam
-
General: Appears in Distress; Negative No Apparent Distress or Comfortable
Respiratory: Rhonchi (Anteriorly)
Cardiac: Regular Rhythm, S1/S2 and Tachycardic
GI: Soft and Distended; Negative Normal Bowel Sounds (Hypoactive)
Musculoskeletal: Other (Seems to be in discomfort when I move lower extremities)
Neuro: Awake; Negative Alert, Oriented or No Motor Deficits (Moves all 4 limbs but does not follow any commands)
Psych: Confused; Negative Calm
Data Reviewed
-
Labs: Labs Reviewed by me
[2024-05-18] MEDS: MORPHINE SULFATE 2 MG IV (10:03)
[2024-05-18] MEDS: ATIVAN 0.5 MG IV ×2 (11:20→18:08)
[2024-05-18] MEDS: NSS (PRESERVATIVE FREE) 0.25 ML IV ×2 (11:21→18:08)
--- NOTE | 2024-05-18 11:34 | W.PN.CARDCBS ---
Addendum entered and electronically signed by Rhona Styles DO 05/18/24 14:10:
I saw and examined the patient.
The Insurance Healthcare Representative's note was reviewed and I agree with the note.
Comment: Patient seen with cardiac PA and multiple family members including and 2 sons at bedside. Patient is sleeping and comfortable. Patient and family opting for comfort care. Support provided to family members and all questions
answered. Will sign off, recall if needed
Original Note:
Today's Communication / Plan
-
No plan for Linq.
HR stable with IV lopressor
GOC conversations ongoing w/ family
Impression / Plan
-
PCP: Dr. Mccrary
Cardiology: Dr. Miller, last seen 04/19/23
Impression:
Weakness and fall
Recent ER visit for fall and right knee pain 05/03/24
Acute hypoxic respiratory failure
Sinus bradycardia
Abdominal pain and possible ileus
DAVE on CKD 3b
Chronic HF improved EF
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
cLBBB
Hyperlipidemia
Chronic benign pericardial cyst
h/o right hemispheric CVA 2013
stroke alert 05/15/[address] head
Possible atrial tachycardia with aberrancy overnight 05/15/24
Nonischemic myocardial injury
Echo 02/2014: [facility] study, EF 25%
Echo 08/15/22: EF 55 to 60%, no MR, mild TR with PAP 20 to 25 mmHg
Echo 05/16/24: Ejection fraction 45% with marked paradoxical septal motion, mild AI
Plan:
-Presented with weakness/fall. Noted to be bradycardic at times, however also w/ runs of tachycardia on telemetry.
-Plan was for Linq monitor placement 05/17, however patient diagnosed with ileus and goals of care conversations are ongoing.
-No plan for Linq monitor at this time.
-Elevated troponin noted, peaking at 0.124 and trending down thereafter. Suspect nonischemic myocardial injury. Continue conservative management.
-Patient was given IV lasix 40 mg x1 05/15, however creat has been uptrending and lasix remains on hold. Creat up to 5.1 05/18.
-Echo 05/16/2024 noted EF now down to 45%. EF previously has been as low as 25%, however improved to 55-60% in 2021.
-Continue IV lopressor as patient is NPO due to ileus.
-GOC conversations ongoing with family, however states she just wants him to be comfortable.
HPI: -Patient came to [facility] today after a fall at home and had an episode of sinus bradycardia with consultation to cardiology. Patient was in [facility] 05/03/24 with a fall that patient and describe as leg weakness resulting in fall and then right
knee pain. Patient had a negative CT head and as discharged to home. He followed up with his PCP 05/09/24 and was started on prednisone for ongoing right knee pain. BP 120/60 and HR 68 at that office visit. Patient says that he awoke early this
morning to urinate, but his bedside urinal was full. His tried to help him stand and he was ambulating with a walker when he fell obtaining a sweater out of the closet. Right knee pain is now much worse. Patient was not SOB at home. No LOC.
Paramedics reported tremulous hands, but no seizure and again no change in level of consciousness. Patient has become increasingly hypoxic in the ER and is now wearing 4 L and sat'ing at 89%. He appears dyspneic and frail, but denies SOB. Tele
reviewed and he had an episode of sinus bradycardia, but was asymptomatic. His reports dizziness every 6 weeks or so that responds to Meclizine at home.
Progress Note - Fish And Wildlife Biologist
Subjective
Date of Service: May 18, 2024
Objective
Labs:
05/18/24 04:17
05/18/24 04:17
Labs
Hgb 12.4 g/dL (13.0-18.0) L 05/18/24 04:17
Hct 35.2 % (39.0-52.0) L 05/18/24 04:17
Plt Count 60 10^3/uL (130-400) L 05/18/24 04:17
PT 13.4 Sec (11.4-14.6) 05/15/24 18:25
INR 1.02 05/15/24 18:25
APTT 24.9 Sec (23.4-35.0) 05/15/24 18:25
Sodium 141 mmol/L (135-145) 05/18/24 04:17
Potassium 3.6 mmol/L (3.5-5.1) 05/18/24 04:17
BUN 80 mg/dl (9-20) H 05/18/24 04:17
Creatinine 5.1 mg/dL (0.7-1.3) H* 05/18/24 04:17
Glucose 169 mg/dl (70-99) H 05/18/24 04:17
Troponins
05/15/24 05/15/24 05/15/24
13:25 13:58 16:06
Troponin I Cancelled 0.053 H* Cancelled
05/15/24 05/15/24 05/15/24
18:24 22:06 23:04
Troponin I 0.103 H* D Cancelled 0.124 H*
05/16/24 05/16/24 05/16/24
02:00 04:34 06:00
Troponin I Cancelled 0.112 H* Cancelled
Vital Signs and I&O:
Vital Signs
Temp Pulse Resp BP Pulse Ox
98.9 F 73 22 107/61 95
05/18/24 07:05 05/18/24 06:00 05/18/24 06:00 05/18/24 06:00 05/18/24 04:00
Vital Signs
Temp Pulse Resp BP Pulse Ox
98.9 F 73 22 107/61 95
05/18/24 07:05 05/18/24 06:00 05/18/24 06:00 05/18/24 06:00 05/18/24 04:00
Intake & Output
05/16/24 05/17/24 05/18/24 05/19/24
06:59 06:59 06:59 06:59
Intake Total 350 / 350
Output Total 300 / 300 450 / 450 330 / 330
Balance 50 / 50 -450 / -450 -330 / -330
Physical Exam
Physical Exam
GEN: No distress, resting comfortably.
HEENT: supple, anicteric, mmm
LUNGS: No audible wheeze
CV: SR on tele
EXT: No clubbing, cyanosis, or edema
SKIN: Warm, dry, no rash
[2024-05-18 12:33] LABS: Glucose - Point of Care 171 mg/dl (70-99)
[2024-05-18] MEDS: DILAUDID 50 IV (12:44)
--- NOTE | 2024-05-18 13:20 | W.PN.GI.CBS2 ---
Today's Communication / Plan
-
no new recs
Assessment / Plan
-
The patient is an 88-year-old male with a past medical history significant for Chronic kidney disease, CHF, hypertension, peripheral neuropathy, prior CVA, left bundle branch block, mood disorder, type 2 diabetes, who presented to the emergency room
for evaluation after a mechanical fall with worsening right knee pain. , now with an overall decline in his prognosis with acute renal failure, hypoxic respiratory failure, and new findings of colonic ileus. He has had no bowel movement since
Monday, with progressive abdominal distention. X-ray imaging done on 05/16 showing colonic ileus, but did not mention any significant stool burden. He has received numerous medications for bowel regimen without any significant bowel movement. He
does have some tenderness on exam but overall seems comfortable. His family is requesting hospice at this time.
Problem list:
-abdominal distention, colonic ileus
-constipation
-Hypoxic respiratory failure 2/2 pneumonia and possible aspiration event
-altered mental status
-thrombocytopenia
-leukocytosis
-elevated bilirubin
-acute renal failure
-bradycardia
-acute on chronic CHF
Other pertinent medical hx:
-CVA
-CKD
-HTN
-neuropathy
-chronic LBBB
-DM2
-Mood disorder
Recommendations:
-ileus, clinically improved
- keep electrolytes stable
- would give miralax prn
no other recommendations at this point
will sign off call with questions
Subjective
Subjective
Date of Service: May 18, 2024
Pt surrounded by family. He is resting comfortably. Family states he hasn't had pain
Objective
Data Reviewed
Laboratory Data:
Laboratory Results
05/18/24 04:17
05/18/24 04:17
Laboratory Results
PT 13.4 Sec (11.4-14.6) 05/15/24 18:25
INR 1.02 05/15/24 18:25
APTT 24.9 Sec (23.4-35.0) 05/15/24 18:25
Magnesium 1.9 mg/dl (1.6-2.3) 05/17/24 03:28
Total Bilirubin 2.0 mg/dl (0.2-1.3) H 05/18/24 04:17
AST 24 U/L (17-59) 05/18/24 04:17
ALT 16 U/L (0-50) 05/18/24 04:17
Alkaline Phosphatase 87 U/L (38-126) 05/18/24 04:17
Lipase 87 U/L (23-300) 05/17/24 03:28
Vital Signs and I&O:
Vital Signs
Temp Pulse Resp BP Pulse Ox
98.5 F 73 22 107/61 95
05/18/24 11:55 05/18/24 06:00 05/18/24 06:00 05/18/24 06:00 05/18/24 04:00
I&O
05/17/24 05/18/24 05/19/24
06:59 06:59 06:59
Output Total 450 / 450 330 / 330
Balance -450 / -450 -330 / -330
Physical Exam
Physical Exam
GI: Distended and Non Tender
--- NOTE | 2024-05-18 13:47 | PTCARENOTE ---
Pt now comfort measures after goals of care discussed w/ family and hospitalist. 1 time dose of morphine and ativan given for pain and agitation. dilaudid drip also initiated per order. See MAR. family at bedside. Pt appears to be resting more
comfortably at this time.
--- NOTE | 2024-05-18 15:51 | CHAP ---
Called by staff for Cedric and family. , Alba, is spiritually strong - she said Cedric has already been anointed by their music promoter. She requested prayers commending Cedric to God, and we offered these from the [employer]. Emotional
and spiritual support provided, along with a prayer blanket, and assurance that we are here for them.
--- NOTE | 2024-05-18 20:55 | PTCARENOTE ---
Received pt from day shift. Dilaudid gtt running @ 0.3 mL/hr (see MAR). Pt currently 85% on 6L NC. Cleaned and changed. Resting in bed with no signs of pain or discomfort. Family at bedside.
[2024-05-19] VITALS: BP 135/63
[2024-05-19] MEDS: ATIVAN 0.5 MG IV ×2 (06:33→18:11)
[2024-05-19] MEDS: DILAUDID 0.25 MG IV ×2 (06:40→19:40)
--- NOTE | 2024-05-19 08:33 | W.PN.HOSP.TC ---
Today's Communication/Plan
-
cw comfort measures
Assessment / Plan
Assessment / Plan
88-year-old male presented to the hospital with right mechanical fall at home on his right knee down, no any dizziness is uncertain of syncope or loss of questions of seizure prior to the fall.
Physical exam:
Acute hypoxic failure: Patient requiring 15 L of oxygen and desaturates when he gets moved.
Initial chest CT showed no evidence of PE or infiltrates but the subsequent CT angiogram of the head and neck showed a developing right upper lobe groundglass opacities clinically concerning for infectious pneumonia. Clinical concern for worsening
pulmonary process.
Repeat a chest x-ray to follow and rule out any developing ARDS.
Change in mental status concerning for encephalopathy. Patient is getting worse neurologically and patient currently not conversive and confused. So far CT imaging including couple of CT of the head and MRI showed no evidence of acute stroke.
Possibility of a seizure was entertained. Is on empirical Keppra mycin. EEG is negative.
With developing thrombocytopenia and worsening of creatinine and indirect thrombocytopenia rule out TTP/HUS. Consider hematology input.
Severe sepsis with multiple dysfunction including hypoxia, acute on chronic renal failure, encephalopathy
Likely secondary to pneumonia
Continue cefepime as above
Oxygen and try to wean off
Monitor vital sign closely
Acute on chronic renal failure: Baseline creatinine around 1.5
Yesterday was 2 today is 5.1
Unclear etiology. Appreciate nephrology input.
Start IV fluid and monitor for fluid status
Avoid nephrotoxin
Abdominal pain and distention: Likely secondary to ileus.
GI input appreciated no need for NG tube now since there is no nausea or vomiting while rectal tube recommended patient did not want initially but okay to be retry to later.
Strict n.p.o.
Change carvedilol to Lopressor IV with holding parameter
Pain and nausea medication as needed
Mechanical fall.
PT OT and assess functional status
Fall precaution
Right knee pain:
Likely secondary to right knee pain and swelling, x-ray showed no fracture or dislocation
Feels better than yesterday.
Pain medication with Ultram and Tylenol avoid NSAID because of chronic kidney disease.
PT OT
Ambulatory dysfunction, secondary to right knee pain
PT OT and assess functional status
Sinus bradycardia
No clear causes
Carvedilol decreased initially but then put back to 12.5
Cardiology hold off plan for monitor placement
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
TSH is normal
Monitor vital sign
Recheck lab
Acute on chronic congestive heart failure, resolved on of diuresis
Cardiac preparation
Recheck lab
Chronic QTc interval prolongation:
Known history
Cardiology on board
TSH is normal and potassium was 3.4 today has been replaced
Continue to monitor
Left bundle branch block: Chronic
Get a troponin
Cardiology consult
Diabetes mellitus: Glucoscan
Continue to hold metformin
monitor blood sugar closely
Hypertension:
Lopressor IV
monitor pressure closely
05/17/2024
goal of care discussion of Dr Johnson
All discussed with the patient and the family and they expressed understanding, as hospice and comfort were mentioned to them.
Had a family meeting with the and multiple children, patient's poor and critical situation explained to them in detail and expressed understanding. For now the CODE STATUS changed to DNR DNI while they want to continue actively treating him
for another day or 2 and reassess then if not improving by then they will consider changing the goal of care to hospice and comfort measures.
Meeting with the family and all the question answered to the best of my knowledge and they all expressed understanding.
Discussed with the nurse and did
CODE STATUS changed to DNR
DVT prophylaxis: Heparin subcu, change Lovenox to heparin because of the worsening renal
Prognosis: Poor
05/18 Prognosis remains poor with multiorgan dysfunction. Patient is not comfortable.
at bedside and she would like him to be comfortable. She understands the poor prognosis and developing organ dysfunction. She wishes him not to suffer anymore, not to be poked and prodded and just to be comfortable and let him pass
peacefully. Discussed with the daughter who is at bedside and they are going to have a family meeting and let me know.
Start on morphine for comfort.
05/19 -patient on comfort measures. He is comfortable on current treatments with morphine and Ativan. He is unresponsive. Family at bedside-provided support. They feel he is comfortable n they are thankful for the care.
Anticipated Discharge: 24 - 48 hours
Subjective/Interval History
-
Date of Service: May 19, 2024
On comfort measures now.
According to family at bedside and RN is been comfortable on the current treatments.
Objective Data
-
Vital Signs:
Vital Signs
Temp Pulse Resp BP Pulse Ox
98.0 F 89 17 135/63 79
05/19/24 03:22 05/19/24 04:00 05/19/24 04:00 05/19/24 00:00 05/19/24 04:00
I&O
05/18/24 05/19/24 05/20/24
06:59 06:59 06:59
Output Total 330 / 330 200 / 200
Balance -330 / -330 -200 / -200
Review of Systems
-
Unable to obtain full review of systems at this time due to: Other (Unresponsive)
Physical Exam
-
General: Comfortable
Respiratory: Non Labored Respirations; Negative Accessory Resp Muscle Use
Neuro: Negative Awake
Psych: Negative Calm
[2024-05-19 12:00] VITALS: BP 118/66
--- NOTE | 2024-05-19 15:24 | CHAP ---
Cedric continues to sleep comfortably, with , Alba, faithfully at his side. She remains strong in spirit, and says her is 'ready.' She is full of praise for the staff. Emotional and spiritual support provided.
[2024-05-19] MEDS: NSS (PRESERVATIVE FREE) 0.25 ML IV (18:10)
[2024-05-19 19:10] VITALS: BP 123/58
--- NOTE | 2024-05-19 19:20 | PTCARENOTE ---
received pt from day shift. Pt resting in bed. Dilaudid gtt @ 0.3 mL/hr (see MAR). Pt sleeping with no signs of pain or discomfort, CPOT of 0. Family at bedside.
[2024-05-19 22:41] VITALS: BP 120/60
[2024-05-20] VITALS: BP 128/60
[2024-05-20] MEDS: ROBINUL 0.2 MG IV ×3 (01:10→09:36)
[2024-05-20] MEDS: DILAUDID 0.5 MG IV ×3 (05:18→14:26)
[2024-05-20 06:16] VITALS: BP 137/65
--- NOTE | 2024-05-20 08:48 | W.PN.HOSP.TC ---
Addendum entered and electronically signed by Anibal Jorge MD 05/20/24 14:19:
Aspiration pneumonia was present on admission.
Original Note:
Today's Communication/Plan
-
Comfort care measures.
Assessment / Plan
Assessment / Plan
Physical exam:
General: Acute on chronically ill. Minimally responsive
HEENT: Normocephalic, Atraumatic
Respiratory: Decreased breath sounds bilateral, few rhonchi scattered. No wheezing
Cardiac: Regular Rhythm and S1/S2
GI: Soft, Nontender and Distended but much less as reported by family at bedside.
Plan:
Comfort:
Continue comfort care measures
Continue with Dilaudid drip
Ativan as needed
Zofran and Tylenol as needed
Dulcolax as needed
Levsin as needed
Bronchodilators as needed
Discussed with hospice nurse and we will get her involved
Discussed with and daughter at bedside
Medical problems list:
Severe sepsis
Colonic ileus
Constipation
Acute on chronic hypoxic respiratory failure
Aspiration pneumonia
Toxic metabolic encephalopathy
Leukocytosis
Thrombocytopenia
Bilirubinemia
DAVE
Bradycardia
Acute on chronic diastolic congestive heart failure
CVA
CKD
Hypertension
Peripheral neuropathy
Diabetes mellitus
Mood disorder
Chronic left bundle branch block
Anticipated Discharge: 24 - 48 hours
Subjective/Interval History
-
Date of Service: May 20, 2024
Patient seen and examined. Minimally responsive. Appears comfortable
Objective Data
-
Vital Signs:
Vital Signs
Temp Pulse Resp BP Pulse Ox
97.6 F 97 16 137/65 76
05/20/24 07:09 05/20/24 06:16 05/20/24 06:16 05/20/24 06:16 05/20/24 06:00
I&O
05/19/24 05/20/24 05/21/24
06:59 06:59 06:59
Output Total 200 / 200 150 / 150
Balance -200 / -200 -150 / -150
[2024-05-20] MEDS: ATIVAN 0.5 MG IV (09:35)
[2024-05-20] MEDS: NSS (PRESERVATIVE FREE) 0.25 ML IV (09:35)
--- NOTE | 2024-05-20 10:13 | PTOTSP ---
Chart reviewed and spoke with RN. Patient has transitioned to hospice care and skilled therapy is no longer warranted. Will discharge at this time. If needs change, please re-consult.
--- NOTE | 2024-05-20 11:27 | CM ---
Addendum entered by Jelena Vasquez RN 05/20/24 12:51:
Consult: Hospice
Spoke with daughter Savana, who has 's cell phone;
explained hospice philosophy & benefits.
She says her mother and she are hoping patient can stay here in [facility] as the cannot care for him at home.
He has LTC insurance if he needs to go to SNF.
[facility] who will meet with family today.
Plan follow up after seen by Hospice.
Original Note:
Patient with Dx Acute hypoxic failure, Change in mental status, sepsis, ARF, Abdominal pain and distention: Likely secondary to ileus, Mechanical fall, Ambulatory dysfunction, secondary to right knee pain. Comfort Care. Receiving IV Dilaudid prn,
IV Ativan prn.
Patient transferred from IMU to today.
Plan comfort care.
--- NOTE | 2024-05-20 12:45 | PN.CDI ---
CDI
- -
CDI:
Physician Documentation Request
Admit Date: 05/15/24 13:17
Dear Doctor Ania,
Clinical Indicators:
Patient admitted with acute hypoxic respiratory failure.
05/15 H & P, 'Acute hypoxic failure:Unclear causes, CT was negative for PE on infiltration, no respiratory symptoms'
05/16 PN, '...repeat CT head and neck which showed right upper lobe infiltration therefore started on a broad-spectrum antibiotic specially procalcitonin extremely elevated'
05/17 GI consult, ' It was suspected he may have had an aspiration event and repeat chest x-ray showed a possible right upper lobe pneumonia'
05/20 PN, 'Aspiration pneumonia'.
Please clarify the following:
Aspiration pneumonia was present on admission
Aspiration pneumonia was not present on admission
Unable to determine
Use of terms such as suspected, likely, concern for, or probable (associated with a specific diagnosis that is being evaluated, monitored, or treated as if it exists) are acceptable and can be coded in the inpatient setting, when documented at the
time of discharge.
Thank you,
Elena Phillips RN BSN
CDI Specialist
available via tiger text
Please use your independent medical judgment in providing your response.
--- NOTE | 2024-05-20 13:32 | W.DCSUMMARY ---
Discharge Summary
Discharge Data
Date of Admission: 05/15/24
Date of Discharge: 05/20/24
-
Pending Results: No
Hospital Course
Patient 88 years old male with history of CKD, CHF, hypertension, peripheral neuropathy, CVA, chronic left bundle branch block, mood disorder, diabetes mellitus type 2, presented to the hospital for evaluation mechanical fall and worsening right
knee pain and mental status changes. There were concerns about stroke with a stroke alert. There were also some concerns for seizures upon admission. Patient was found to be severely bradycardic and beta-blockers adjusted. There were some
concerns for aspiration and CTA negative for PE. He was started on antibiotics per MRI of the brain did not show acute findings but chronic stroke. He was on antiseizure medications. Abdominal distended and he was placed on bowel regimen and
rectal tubes at some point. Unfortunately, patient continued to deteriorate despite aggressive measures. Patient was placed on comfort measures. Discussed with family. He has been transition to comfort care. Hospice care consulted. He will be
transition also to inpatient hospice care.
Discharge Plan
-
Diet: Low Cholesterol
Referrals:
Rafy Miller MD [Active] - 07/31/24 1:40 pm
Salbador Mccrary DO [Family Provider] -
Prescriptions:
No Action
atorvastatin 40 MG tablet
40 mg PO HS
aspirin 325 MG tablet
325 mg PO HS
ascorbic acid (vitamin C) [Vitamin C] 500 mg Tablet
500 mg PO DAILY
carvedilol [Coreg] 6.25 MG tablet
12.5 mg PO BID
meclizine 25 MG tablet
25 mg PO Q8HPRN PRN (Reason: dizziness) Qty: 10 0RF
metformin 500 mg Tablet
500 mg PO BID
amlodipine [Norvasc] 5 mg Tablet
5 mg PO DAILY
allopurinol 100 mg Tablet
100 mg PO DAILY
tamsulosin [Flomax] 0.4 mg Capsule
0.4 mg PO DAILY
docusate sodium [Colace] 100 mg Capsule
100 mg PO NOON
mirtazapine 15 mg Tablet
15 mg PO HS
furosemide 80 MG tablet
60 mg PO DAILY
Discharge Date and Time
Print Language: ESTONIAN
--- NOTE | 2024-05-20 13:43 | HOSPNOTE ---
Patient mets GIP level of care criteria currently on a continuous Dilaudid infusion IV, received Dialudid for break though x 2 in last 24 hours. Ativan IV x 3 in last 24 hours for anxiety and Robinul x 3 in 24 hours. Family is agreeable to hospice
care and consents are signed. Family is aware that patient has hours to days of life remaining.
== END 2024-05-20 15:02 | disposition hospice, home (50) | DRG 177 ==
LOC: 2 NORTH 13:17
PROVIDERS: Clinical Nurse Specialist Family Health; Nurse Practitioner Gerontology; ADMITTING PHYSICIAN Internal Medicine; ATTENDING PHYSICIAN Hospitalist; CONSULT PHYSICIAN Internal Medicine; CONSULT PHYSICIAN Internal Medicine Cardiovascular Disease; CONSULT PHYSICIAN Psychiatry & Neurology Neurology; EMERGENCY PHYSICIAN Emergency Medicine; FAMILY PHYSICIAN Internal Medicine; OTHER PHYSICIAN Student in an Organized Health Care Education/Training Program
DX: J69.0 Pneumonitis due to inhalation of food and vomit (principal); A41.9 Sepsis, unspecified organism; J96.01 Acute respiratory failure with hypoxia; R65.20 Severe sepsis without septic shock; G92.8 Other toxic encephalopathy; K56.7 Ileus, unspecified; N17.9 Acute kidney failure, unspecified; I13.0 Hypertensive heart and chronic kidney disease with heart failure and stage 1 through stage 4 chronic kidney disease, or unspecified chronic kidney disease; I50.32 Chronic diastolic (congestive) heart failure; I5A Non-ischemic myocardial injury (non-traumatic); Z51.5 Encounter for palliative care; E11.22 Type 2 diabetes mellitus with diabetic chronic kidney disease; E11.42 Type 2 diabetes mellitus with diabetic polyneuropathy; D69.6 Thrombocytopenia, unspecified; N18.32 Chronic kidney disease, stage 3b; Z11.52 Encounter for screening for COVID-19
CPT/HCPCS: 70450; 70496; 70498; 70551; 71046; 71275; 73564; 74018; 80048; 80053; 80061; 80202; 81003; 82248; 82962; 83036; 83690; 83735; 83880; 84132; 84145; 84443; 84484; 85025; 85027; 85610; 85730; 87641; 87811; 93005; 93306; 94640; 95816; 97163; 97167; 99285; Q9950; Q9967

== ENCOUNTER 2024-05-20 15:05 | Inpatient (IN) | payer OTHER, SELFPAY ==
--- NOTE | 2024-05-20 15:54 | HPS.HSE ---
Family Physician
-
Family Physician: NO INTERVIEW UNKNOWN
Chief Complaint
-
Generalized weakness
History of Present Illness
Patient 88 years old male with history of CKD, CHF, hypertension, peripheral neuropathy, CVA, chronic left bundle branch block, mood disorder, diabetes mellitus type 2, presented to the hospital for evaluation mechanical fall and worsening right
knee pain and mental status changes. There were concerns about stroke with a stroke alert. There were also some concerns for seizures upon admission. Patient was found to be severely bradycardic and beta-blockers adjusted. There were some
concerns for aspiration and CTA negative for PE. He was started on antibiotics per MRI of the brain did not show acute findings but chronic stroke. He was on antiseizure medications. Abdominal distended and he was placed on bowel regimen and
rectal tubes at some point. Unfortunately, patient continued to deteriorate despite aggressive measures. Patient was placed on comfort measures. Discussed with family. He has been transition to comfort care. Hospice care consulted. He will be
admitted to inpatient hospice care today.
Medical History
Past Medical History
Past Medical History: Reports Other
Additional Past Medical History:
Past medical history reviewed:
Diabetes mellitus
Chronic kidney disease stage II-III
Mood disorder
Hypertension
Chronic diastolic congestive heart failure
Peripheral neuropathy
History of stroke with no residual effect
Chronic left bundle branch block
Surgical history:
Cervical spine surgery
Tonsillectomy
Cataract surgery
Social history: Lives at home with independently, no smoking and drinks 1 to 2 glasses of wine daily.
Family history: Reviewed and noncontributory
Past Surgical History: Reports Other
Social History
Unable to obtain full social history at this time due to: Other
Family History
Family History: Other
Allergies / Home Medications
Allergies reflects when Allergies were last updated in [employer].
Home Medications with original date entered in [employer]
Allergy/Medication List:
Allergies
Allergy/AdvReac Type Severity Reaction Status Date / Time
No Known Allergies Allergy Verified 05/03/24 11:21
Home Medications
ascorbic acid (vitamin C) 500 mg tablet (Vitamin C) 500 mg PO DAILY Supplement 09/07/14
aspirin 325 mg tablet 325 mg PO HS Blood Clot Prevention/Tx 09/07/14
atorvastatin 40 mg tablet 40 mg PO HS High Cholesterol 09/07/14
carvedilol 6.25 mg tablet (Coreg) 12.5 mg PO BID Blood Pressure 01/20/16
meclizine 25 mg tablet 25 mg PO Q8HPRN PRN dizziness #10 tabs 07/18/18
allopurinol 100 mg tablet 100 mg PO DAILY Gout 05/15/24
amlodipine 5 mg tablet (Norvasc) 5 mg PO DAILY Blood Pressure 05/15/24
docusate sodium 100 mg capsule (Colace) 100 mg PO NOON Constipation 05/15/24
furosemide 80 mg tablet 60 mg PO DAILY Fluid Retention/Swelling 05/15/24
metformin 500 mg tablet 500 mg PO BID Diabetes 05/15/24
mirtazapine 15 mg tablet 15 mg PO HS Mental Health/Anxiety 05/15/24
tamsulosin 0.4 mg capsule (Flomax) 0.4 mg PO DAILY Urinary Issue 05/15/24
Review of Systems
-
Unable to obtain full review of systems at this time due to: Other (Comfort care measures)
Physical Exam
Vital Signs
Physical exam:
General: Acute on chronically ill. Minimally responsive
HEENT: Normocephalic, Atraumatic
Respiratory: Decreased breath sounds bilateral, few rhonchi scattered. No wheezing
Cardiac: Regular Rhythm and S1/S2
GI: Soft, Nontender and Distended
Physical Exam
General: Other
Impression/Plan
-
IMPRESSION:
Patient 88 years old male with multiple comorbidities presented to the hospital with encephalopathy, sepsis, aspiration pneumonia, and multiple other complications and family decided on comfort care measures. Patient being admitted to inpatient
hospice.
PLAN:
Comfort:
Continue comfort care measures
Continue with Dilaudid drip
Ativan as needed
Zofran and Tylenol as needed
Dulcolax as needed
Levsin as needed
Bronchodilators as needed
Discussed with hospice nurse and we will get her involved
Discussed with and daughter at bedside
Medical problems list:
Severe sepsis
Colonic ileus
Constipation
Acute on chronic hypoxic respiratory failure
Aspiration pneumonia
Toxic metabolic encephalopathy
Leukocytosis
Thrombocytopenia
Bilirubinemia
DAVE
Bradycardia
Acute on chronic diastolic congestive heart failure
CVA
CKD
Hypertension
Peripheral neuropathy
Diabetes mellitus
Mood disorder
Chronic left bundle branch block
SCD prophylaxis-not appropriate due to comfort care
CODE STATUS-DNR
[2024-05-20] MEDS: DILAUDID 0.5 MG IV ×2 (16:05→16:44)
[2024-05-20 16:25] VITALS: BP 137/65
[2024-05-20] MEDS: ROBINUL 0.2 MG IV (16:44)
[2024-05-20] MEDS: ATIVAN 1 MG IV (16:44)
--- NOTE | 2024-05-20 18:25 | PTCARENOTE ---
Pt. admitted onto hospice services. Step 2 Dilaudid gtt running. Family at bedside.
--- NOTE | 2024-05-20 19:06 | W.PN.DEATH ---
Pronouncement of
-
Called to see patient to pronounce.
No spontaneous heart tones or respirations noted.
Patient not responsive to verbal stimuli.
Patient is pronounced .
Time of : 18:57
Date of : 05/20/24
Cause of : colonic ileus
Family Notified: Yes
--- NOTE | 2024-05-20 19:11 | PTCARENOTE ---
Patient has no heart tones upon auscultation. made aware. Family at bedside.
--- NOTE | 2024-05-21 09:06 | W.DCSUMMARY ---
Discharge Summary
Discharge Data
Date of Admission: 05/20/24
Date of Discharge: 05/20/24
-
Pending Results: No
Hospital Course
Patient 88 years old male with history of CKD, CHF, hypertension, peripheral neuropathy, CVA, chronic left bundle branch block, mood disorder, diabetes mellitus type 2, presented to the hospital for evaluation mechanical fall and worsening right
knee pain and mental status changes. There were concerns about stroke with a stroke alert. There were also some concerns for seizures upon admission. Patient was found to be severely bradycardic and beta-blockers adjusted. There were some
concerns for aspiration and CTA negative for PE. He was started on antibiotics per MRI of the brain did not show acute findings but chronic stroke. He was on antiseizure medications. Abdominal distended and he was placed on bowel regimen and
rectal tubes at some point. Unfortunately, patient continued to deteriorate despite aggressive measures. Patient was placed on comfort measures. Discussed with family. He has been transition to comfort care. Hospice care consulted. Patient was
transition to hospice care inpatient. Patient was placed on comfort care medications and he on 05/20/2024. Let his soul rest in peace.
Discharge Plan
-
Patient Disposition:
Date/Time
Date/Time: 05/20/24 19:22
Discharge Date and Time
Discharge Date/Time: 05/20/24 19:22
Print Language: JAPANESE
== END 2024-05-20 19:22 | disposition expired | DRG 951 ==
LOC: 2 NORTH 15:05
PROVIDERS: ADMITTING PHYSICIAN Hospitalist
DX: Z51.5 Encounter for palliative care (principal); K56.7 Ileus, unspecified